=== PATIENT | female | born 1960 | race Caucasian/White ===

== ENCOUNTER 2017-04-27 13:14 | Inpatient (IN) | payer OTHER ==
[2017-04-27 14:15] LABS: ABS Basophils 0.1 10^3/ul (0-0.2); ABS Eosinophils 0 10^3/ul (0-0.6); ABS Lymphocytes 1.3 10^3/ul (1.0-4.8); ABS Monocytes 1.1 10^3/ul (0-0.8); ABS Neutrophils 14.2 10^3/ul (1.5-7.7); ABS Nucleated RBC 0 10^3/ul; Eosinophil % 0 % (0-6); Hematocrit 40 % (35-47); Hemoglobin 13.1 g/dl (12.0-16.0); Lymphocyte % 8.1 % (25-47); Mean Corpuscular HGB Conc 33 g/dl (31-36); Mean Corpuscular Hemoglobin 25 pg (27-31); Mean Corpuscular Volume 77 fL (80-97); Mean Platelet Volume 8 um3 (7.4-10.4); Nucleated Red Blood Cells % 0; Platelet Count 282 10^3/ul (150-450); Red Cell Distribution Width 16 % (10.5-15); White Blood Count 16.8 10^3/ul (3.5-10.8)
[2017-04-27 14:22] LABS: INR 1.04 (0.77-1.02)
[2017-04-27 14:30] LABS: EGFR Non-African American 79.9 (>60)
[2017-04-27] MEDS ORDERED: NS 0.9% 1000 ML* 2,000 ML IV ONE (14:30)
[2017-04-27] MEDS ORDERED: Cefepime(*) 1 GM in NS 0.9% 50 ML* 50 ML IVPB ONE (14:30)
--- NOTE | 2017-04-27 14:58 | RAD ---
Indication: Bilateral swollen forehead and eyes of uncertain etiology. Cardiac disease and chronic obstructive pulmonary disease. Comparison: June 04, 2015 Technique: Upright AP 1435 hours Report: Elevated lung volumes and mild prominence of the interstitial markings with superimposed soft tissues with obese body habitus limiting assessment. No compelling evidence for pulmonary alveolar infiltrate, focal pulmonary lesion, pleural effusion, or pneumothorax. Cardiomegaly. Unremarkable central pulmonary vasculature accounting for portable AP technique. IMPRESSION: Stigmata of obstructive lung disease. No acute pulmonary or cardiac process evident.
[2017-04-27] MEDS ORDERED: Acetaminophen TAB* 325 MG PO ONE (15:49)
[2017-04-27] MEDS ORDERED: Vancomycin(*) 1,000 MG in NS 0.9% 250 ML* 250 ML IVPB ONE (16:37)
[2017-04-27] MEDS ORDERED: Iodixanol* (CONTRAST) 320 MG/ML 100 ML SDV IV ONE (16:42)
[2017-04-27 16:46] LABS: Urine Appearance Cloudy; Urine Blood 2+ (Negative); Urine Color Yellow; Urine Ketones Trace (Negative); Urine Protein 1+(30 mg/dL) (Negative); Urine Specific Gravity 1.008 (1.010-1.030); Urine Urobilinogen Negative (Negative)
--- NOTE | 2017-04-27 17:19 | RAD ---
HISTORY: Facial cellulitis COMPARISONS: None TECHNIQUE: Multiple contiguous axial CT scans were obtained of the face with intravenous contrast, with coronal and sagittal multiplanar reformations. FINDINGS: BONES: There is no displaced fracture or dislocation. The orbital rim is intact. The zygomatic arch is intact. The pterygoid plates are intact. ORBITS: There is left preorbital soft tissue swelling without post septal or intraconal extension. The globes are round. The optic nerves are symmetric. The extraocular musculature is normal. There is no post septal or intraconal inflammatory change. There is no retrobulbar hematoma. PARANASAL SINUSES: The paranasal sinuses are clear. BRAIN AND SOFT TISSUE: As noted above, there is left preorbital soft tissue swelling without post septal or intraconal extension. The soft tissue swelling and into the infratemporal fossa along the platysma fascia without deep subcutaneous extension. There is no loculated fluid collection to suggest abscess. OTHER: None. IMPRESSION: LEFT PREORBITAL CELLULITIS WITHOUT LOCULATED FLUID COLLECTION TO SUGGEST ABSCESS.
[2017-04-27] MEDS ORDERED: Ondansetron INJ* 2 MG/ML VIAL IV PRN (17:41)
[2017-04-27] MEDS ORDERED: NS 0.9% 1000 ML* 1,000 ML IV ONE (17:41)
[2017-04-27] MEDS ORDERED: Albuterol HFA INHALER* 8 gm MDI INH PRN (17:43)
[2017-04-27] MEDS ORDERED: NS 0.9% 1000 ML* 1,000 ML IV SCH (17:45)
[2017-04-27] MEDS ORDERED: Vancomycin per Pharmacy* NOTE FOLLOW UP PRN (17:54)
[2017-04-27] MEDS ORDERED: Dextrose 50% Syringe 50 ML* 25 GM/50 ML SYRINGE IV PUSH PRN (17:58)
[2017-04-27] MEDS ORDERED: Vancomycin(*) 2,000 MG in NS 0.9% 500 ML* 500 ML IVPB ONE (18:30)
--- NOTE | 2017-04-27 18:37 | ED ---
Mayela Yung Julia, scribed for Harry Benoit MD on 04/27/17 at 1449 . Complex/Multi-Sys Presentation - HPI Summary HPI Summary: This patient is a 56 year old F BIBA to [facility] with a chief complaint of redness and swelling of her upper face beginning today. Patient rates the pain 6/10. Patients eyes have been bothering her for the past few day and states she has been rubbing them. Patient reports intermittent fever for the past few days that shes been treating with acetaminophen. - History Of Current Complaint Chief Complaint: EDAllergicReaction Time Seen by Provider: 04/27/17 13:49 Hx Obtained From: Patient Onset/Duration: Gradual Onset, Lasting Days Timing: Constant Location: Pain At: - eyes and upper face Associated Signs And Symptoms: Positive: Fever - Allergies/Home Medications Allergies/Adverse Reactions: Allergies Allergy/AdvReac Type Severity Reaction Status Date / Time No Known Allergies Allergy Verified 06/28/12 14:08 Home Medications: Home Medications Insulin Aspart Protamine & Asp [Novolog Mix 70/30 (70-30) 100 Unit/ml] 150 unit SUBCUT QPM 04/27/17 [History Confirmed 04/27/17] Varenicline (NF) [Chantix 1 MG TAB (NF)] 1 mg PO BID 04/27/17 [History Confirmed 04/27/17] PMH/Surg Hx/FS Hx/Imm Hx Endocrine/Hematology History: Reports: Hx Anticoagulant Therapy, Hx Diabetes - Type II, Hx Thyroid Disease - hypo Cardiovascular History: Reports: Hx Hypercholesterolemia, Hx Hypertension Respiratory History: Reports: Hx Chronic Obstructive Pulmonary Disease (COPD) Musculoskeletal History: Reports: Hx Arthritis - osteo, Other Musculoskeletal History - (right) knee replacement 02/2010 Sensory History: Reports: Hx Contacts or Glasses, Hx Vision Problem Denies: Hx Deafness Opthamlomology History: Reports: Hx Contacts or Glasses, Hx Vision Problem Neurological History: Reports: Hx Headaches Denies: Hx Dementia, Hx Developmental Delay, Hx Migraine Psychiatric History: Reports: Hx Anxiety, Hx Depression - Cancer History Cancer Type, Location and Year: 06/01-08/29 endometrial cancer [place] 1, stage 1, no myometrial or lymphpvascular invasion. No adjunctive required. - Surgical History Surgery Procedure, Year, and Place: 08/29 total hysterectomy bilateral salpingo oopherectomy, 02/27 [facility] (right) total knee replacement - Immunization History Date of Influenza Vaccine: 02/2017 Immunizations Up to Date: Yes Infectious Disease History: No Infectious Disease History: Denies: Traveled Outside the [place] in Last 30 Days - Family History Known Family History: Positive: Cardiac Disease - Social History Alcohol Use: None Substance Use Type: Reports: None Hx Tobacco Use: Yes Smoking Status (MU): Light Every Day Tobacco Smoker Type: Cigarettes Have You Smoked in the Last Year: Yes Review of Systems Positive: Fever Positive: Other - swelling and pain All Other Systems Reviewed And Are Negative: Yes Physical Exam - Summary Physical Exam Summary: Appearance: The patient is well-nourished in no acute distress and in no acute pain. Skin: The skin is warm and dry and skin color reflects adequate perfusion. HEENT: The head is normocephalic and atraumatic. The pupils are equal and reactive. The conjunctivae are clear and without drainage. Nares are patent and without drainage. Mouth reveals moist mucous membranes and the throat is without erythema and exudate. The external ears are intact. The ear canals are patent and without drainage. The tympanic membranes are intact. Swollen and erythemic face. Neck: the neck is supple with full range of motion and non-tender. There are no carotid bruits. There is no neck vein distension. Respiratory: Chest is non-tender. Lungs are clear to auscultation and breath sounds are symmetrical and equal. Cardiovascular: Heart is regular rate and rhythm. There is no murmur or rub auscultated. There is no peripheral edema and pulses are symmetrical and equal. Abdomen: The abdomen is soft and non-tender. There are normal bowel sounds heard in all four quadrants and there is no organomegaly palpated. Musculoskeletal: There is no back tenderness noted. Extremities are non-tender with full range of motion. There is good capillary refill. There is no peripheral edema or calf tenderness elicited. Neurological: Patient is alert and oriented to person, place and time. The patient has symmetrical motor strength in all four extremities. Cranial nerves are grossly intact. Deep tendon reflexes are symmetrical and equal in all four extremities. Psychiatric: The patient has an appropriate affect and does not exhibit any anxiety or depression Triage Information Reviewed: Yes Vital Signs On Initial Exam: Initial Vitals Temp Pulse Resp BP Pulse Ox 103.5 F 123 20 185/93 96 04/27/17 13:37 04/27/17 13:37 04/27/17 13:37 04/27/17 13:37 04/27/17 13:37 Vital Signs Reviewed: Yes - [place]sha Coma Scale Coma Scale Total: 15 Diagnostics - Vital Signs Vital Signs Temp Pulse Resp BP Pulse Ox 04/27/17 14:03 96 04/27/17 13:37 103.5 F 123 20 185/93 96 - Laboratory Lab Results: Lab Results 04/27/17 04/27/17 04/27/17 Range/Units 14:00 14:00 14:00 WBC 16.8 H (3.5-10.8) 10^3/ul RBC 5.20 (4.0-5.4) 10^6/ul Hgb 13.1 (12.0-16.0) g/dl Hct 40 (35-47) % MCV 77 L (80-97) fL MCH 25 L (27-31) pg MCHC 33 (31-36) g/dl RDW 16 H (10.5-15) % Plt Count 282 (150-450) 10^3/ul MPV 8 (7.4-10.4) um3 Neut % (Auto) 84.9 H (38-83) % Lymph % (Auto) 8.1 L (25-47) % Avery % (Auto) 6.6 (1-9) % Eos % (Auto) 0 (0-6) % Baso % (Auto) 0.4 (0-2) % Absolute Neuts (auto) 14.2 H (1.5-7.7) 10^3/ul Absolute Lymphs (auto) 1.3 (1.0-4.8) 10^3/ul Absolute Monos (auto) 1.1 H (0-0.8) 10^3/ul Absolute Eos (auto) 0 (0-0.6) 10^3/ul Absolute Basos (auto) 0.1 (0-0.2) 10^3/ul Absolute Nucleated RBC 0 10^3/ul Nucleated RBC % 0 INR (Anticoag Therapy) 1.04 H (0.77-1.02) Sodium 128 L (133-145) mmol/L Potassium Pending Chloride 91 L (101-111) mmol/L Carbon Dioxide 28 (22-32) mmol/L Anion Gap Pending BUN 9 (6-24) mg/dL Creatinine 0.75 (0.51-0.95) mg/dL Est GFR ( Amer) 102.8 (>60) Est GFR (Non-Af Amer) 79.9 (>60) BUN/Creatinine Ratio 12.0 (8-20) Glucose 353 H (70-100) mg/dL Lactic Acid (0.5-2.0) mmol/L Calcium 9.8 (8.6-10.3) mg/dL Total Bilirubin 0.70 (0.2-1.0) mg/dL AST Pending ALT 16 (7-52) U/L Alkaline Phosphatase 79 (34-104) U/L Troponin I 0.02 (<0.04) ng/mL Total Protein 8.1 (6.4-8.9) g/dL Albumin 3.9 (3.2-5.2) g/dL Globulin 4.2 H (2-4) g/dL Albumin/Globulin Ratio 0.9 L (1-3) 04/27/17 Range/Units 14:00 WBC (3.5-10.8) 10^3/ul RBC (4.0-5.4) 10^6/ul Hgb (12.0-16.0) g/dl Hct (35-47) % MCV (80-97) fL MCH (27-31) pg MCHC (31-36) g/dl RDW (10.5-15) % Plt Count (150-450) 10^3/ul MPV (7.4-10.4) um3 Neut % (Auto) (38-83) % Lymph % (Auto) (25-47) % Avery % (Auto) (1-9) % Eos % (Auto) (0-6) % Baso % (Auto) (0-2) % Absolute Neuts (auto) (1.5-7.7) 10^3/ul Absolute Lymphs (auto) (1.0-4.8) 10^3/ul Absolute Monos (auto) (0-0.8) 10^3/ul Absolute Eos (auto) (0-0.6) 10^3/ul Absolute Basos (auto) (0-0.2) 10^3/ul Absolute Nucleated RBC 10^3/ul Nucleated RBC % INR (Anticoag Therapy) (0.77-1.02) Sodium (133-145) mmol/L Potassium Chloride (101-111) mmol/L Carbon Dioxide (22-32) mmol/L Anion Gap BUN (6-24) mg/dL Creatinine (0.51-0.95) mg/dL Est GFR ( Amer) (>60) Est GFR (Non-Af Amer) (>60) BUN/Creatinine Ratio (8-20) Glucose (70-100) mg/dL Lactic Acid 1.8 (0.5-2.0) mmol/L Calcium (8.6-10.3) mg/dL Total Bilirubin (0.2-1.0) mg/dL AST ALT (7-52) U/L Alkaline Phosphatase (34-104) U/L Troponin I (<0.04) ng/mL Total Protein (6.4-8.9) g/dL Albumin (3.2-5.2) g/dL Globulin (2-4) g/dL Albumin/Globulin Ratio (1-3) Result Diagrams: 04/27/17 14:00 04/27/17 16:00 Lab Statement: Any lab studies that have been ordered have been reviewed, and results considered in the medical decision making process. - Radiology CXR Radiology Interpretation Completed By: Radiologist - Stigmata of obstructive lung disease. No acute pulmonary or cardiac process evident. ED Physician has reviewed this report. Complex Multi-Symp Course/Dx Course Of Treatment: Ms. Burciaga presented afteer having noticed her face was swollen today. She has been running fevers that she has treated with acetaminophen (not today). Her eyes have been hurting and she has been rubbing them. She had an obvious facial cellulitis on arrival and met sepsis criteria. Antibiotics and Fluids were immediately ordered and labs sent after establishing an IV. She is being admitted to the hospitalist service. - Diagnoses Provider Diagnoses: Facial cellulitis - Critical Care Time Critical Care Time: 30-74 min Discharge - Discharge Plan Condition: Stable Disposition: ADMITTED TO [facility] The documentation as recorded by the Mayela dunbar Julia accurately reflects the service I personally performed and the decisions made by me, Harry Benoit MD.
[2017-04-27] MEDS: Mometasone/Formoter 200/5 MDI INH SCH (20:49)
[2017-04-27] MEDS ORDERED: Insulin LISPRO* 1 UNITS UNIT SUBCUT ONE ×2 (21:25→21:33)
[2017-04-27] MEDS: Acetaminophen TAB* 325 MG PO PRN (22:09)
[2017-04-27] MEDS: Gabapentin CAP(*) 300 MG PO SCH (22:10)
[2017-04-27] MEDS: traZODone TAB* 50 MG TAB PO SCH (22:11)
[2017-04-27] MEDS: Amitriptyline TAB* 25 MG PO SCH (22:11)
[2017-04-27] MEDS: Insulin ISOPH/REG 70/30 (*) 1 UNITS UNIT SUBCUT SCH (22:12)
[2017-04-27] MEDS: Heparin VIAL(*) 5000 UNITS/ML VIAL (FIVE THOUSAND) SUBCUT SCH (22:13)
[2017-04-27] MEDS: Atorvastatin* 20 MG TAB PO SCH (22:38)
--- NOTE | 2017-04-27 22:53 | HP ---
CC: Dr. Carrasquillo * HISTORY AND PHYSICAL: DATE OF ADMISSION: 04/27/17 PRIMARY CARE PROVIDER: Dr. Carrasquillo. ATTENDING PHYSICIAN WHILE IN THE HOSPITAL: Dakota Rosa MD * (report dictated by Olayinka Johnson NP) CHIEF COMPLAINT: 1. Facial swelling. 2. Fever. HISTORY OF PRESENT ILLNESS: Mrs. Burciaga is a 56-year-old female patient. She has a history of diabetes, COPD, hypertension, hyperlipidemia, uterine cancer, and a history of JOSE. She comes into the ER today stating that for the last couple of days she has had a fever off and on. She had not been feeling well. She says that she woke up this morning and her face was swollen. She was concerned because of the way her face looked and came into the ER immediately. She says that she has had fevers. She denies having any pain when moving her eyes. She says she has not had any visual changes. She denies having any vomiting or diarrhea. No chest pain. She denied having any shortness of breath or any abdominal discomfort. She was concerned because of her face, came into the ED today. She appeared to be septic from possible facial cellulitis. We were asked to evaluate for admission. PAST MEDICAL HISTORY: Significant for: 1. Diabetes. 2. COPD. 3. Hypertension. 4. Hyperlipidemia. 5. Uterine cancer. 6. JOSE. PAST SURGICAL HISTORY: 1. The patient has had a hysterectomy. 2. Right total knee replacement. HOME MEDICATIONS: Include: 1. Insulin 70/30, 150 at bedtime and 100 units in the morning. 2. Lisinopril/hydrochlorothiazide 1 tablet p.o. b.i.d. 3. Chantix 1 mg p.o. b.i.d. 4. Advair 1 puff inhaled b.i.d. 5. Lexapro 20 mg p.o. daily. 6. Aspirin 81 mg daily. 7. Amitriptyline 75 mg p.o. at bedtime. 8. Ventolin 2 puffs inhaled every 4 hours as needed. 9. Neurontin 300 mg p.o. t.i.d. 10. Lasix 40 mg daily. 11. Metoprolol XL 200 mg daily. 12. Victoza 1.8 mg subcu daily. 13. Synthroid 100 mcg p.o. daily. 14. Trazodone 50 mg p.o. at bedtime. 15. Metformin 1000 mg p.o. b.i.d. 16. Mucinex 600 mg p.o. b.i.d. 17. Spiriva 1 capsule inhaled daily. 18. Zocor 40 mg at bedtime. ALLERGIES TO MEDICATIONS: Include no known drug allergies. FAMILY HISTORY: Her mother had a history of Parkinson's and COPD. Father had a history of rheumatoid fever. SOCIAL HISTORY: She is a pack a day smoker for about 40 years. Does not drink alcohol. Surrogate decision maker is her son, Clinton. REVIEW OF SYSTEMS: There was a documented fever. She denied any significant weight change. No double vision. No ear discharge. She denied having any rhinorrhea. No sore throat, no thyroid enlargement. She denies having any chest pain. There is no orthopnea, no nocturnal dyspnea. There was no abdominal pain. No nausea, no vomiting, no dysuria, and no frequency. There was no seizure, no loss of consciousness, and no pruritus. There are no skin ulcerations. Review of 14 systems completed, all others negative. PHYSICAL EXAMINATION GENERAL: At this time, Mrs. Burciaga is a 56-year-old female patient, she is chronically ill-appearing. She is sitting in the ED stretcher. She does not appear to be in any acute distress. VITAL SIGNS: Blood pressure 143/83 with a pulse of 124, respirations were 18, O2 sat was 96% on 3 L, and her temperature was 103. HEENT: Head: Atraumatic and normocephalic. Eyes: EOMs are intact. Sclerae anicteric and not pale. Throat: Oral mucosa appears to be dry. No oropharyngeal erythema. NECK: Supple. LUNGS: Clear to auscultation bilaterally. No wheezes, rales, or rhonchi. HEART: Sounds S1 and S2. Regular rate and rhythm. She is tachycardic. ABDOMEN: Soft, it was flat and nontender. Bowel sounds were present. EXTREMITIES: Pulses were 2+ throughout. She is moving all 4 extremities with 5 /5 strength. NEUROLOGIC: The patient is awake, alert, and oriented x3. Tongue midline. Film Printer were equal. No gross focal deficits. SKIN: Intact with the exception she has erythema across the forehead. It does extend down into the upper lid of both of her eyes. She can open the left eye just slightly. Again in that eye she has no pain with EOMs and she has visual acuity which is intact. The erythema does extend to the preauricular space. She is not having any tenderness in her ears. There is no adenopathy in the neck noted as well. DIAGNOSTIC STUDIES/LAB DATA: Her labs today revealed a WBC of 16.8, RBC of 5.20, hemoglobin of 13.1, hematocrit of 40, and platelet count of 282. INR 1. Her sodium was 138, potassium of 3.8, chloride of 91, bicarb 28, BUN 9, creatinine of 0.75, glucose 353, lactate 1.8, calcium 9.8. Total bili 0.7, AST 14, ALT 16, alk phos 79, troponin 0.02, albumin 3.9. Urine showed low specific gravity, 1+ protein, 2+ blood, and 3+ glucose. Serology was negative for flu. She did have a CT of the maxillofacial which showed, impression: Left periorbital cellulitis without loculated fluid collection to suggest abscess. Chest x-ray showed stigmata of COPD, no acute cardiopulmonary or cardiac process is evident. Old medical records were reviewed. ASSESSMENT AND PLAN: Mrs. Burciaga is a 56-year-old female patient coming into the ER today with complaints of facial swelling, on evaluation was found to have facial cellulitis. She will be admitted under inpatient status for: 1. Sepsis secondary to facial cellulitis. At this point, I will give her a liter of fluids for 3 L wide open. Her lactic was negative. Blood cultures have been sent. We will put her on vanco and cefepime for the time being and we will follow her aggressively and closely. She has no pain with range of motion of the eye or EOMs and she has no deficit in visual acuity. Pupils are equal and reactive to light bilaterally. There was no erythema in the sclerae. I did have my attending evaluate as well and he was in agreement that at this point there does appear to be periorbital and that hopefully with aggressive IV antibiotics we can prevent orbital cellulitis. We will monitor her closely for progression. 2. Diabetes. She will be on lispro sliding scale and I will continue her 70/ 30. 3. Chronic obstructive pulmonary disease. Continue p.r.n. nebs and her meds as prescribed. 4. Hypertension. Continue just her beta-fartun at this point. I have switched it over to the immediate release 100 b.i.d. In addition to this, we will go ahead and hold her lisinopril/hydrochlorothiazide and Lasix from the acute illness. 5. Hyperlipidemia. Continue her Zocor. 6. History of obstructive sleep apnea. I have ordered a CPAP. 7. Depression. Continue her Lexapro. 8. Code status. Full code. 9. Fluids, electrolytes, and nutrition. She can have a consistent carb diet. TIME SEEN: On admission 60 minutes, greater than half the time was spent face- to- face with the patient obtaining my history and physical, other half the time spent going over the plan of care with the patient and implementing the plan of care. I did discuss the plan of care with my attending, Dr. Rosa; he is in agreement. OLAYINKA JOHNSON, BRYAN [id number]/CPS #: [id number] [place]
[2017-04-27] MEDS ORDERED: hydrALAZINE IV* 20 MG/ML VIAL IV PRN (23:59)
[2017-04-28] MEDS: Vancomycin(*) 1,250 MG in NS 0.9% 250 ML* 250 ML IVPB SCH ×3 (03:15→17:22)
[2017-04-28] MEDS: Levothyroxine TAB* 100 MCG TAB PO SCH (05:56)
[2017-04-28] MEDS: Cefepime 2 GM in Dextrose(*) 2 GM/50 ML BAG IV SCH ×2 (05:56→16:23)
[2017-04-28] MEDS: Heparin VIAL(*) 5000 UNITS/ML VIAL (FIVE THOUSAND) SUBCUT SCH ×3 (05:56→21:25)
[2017-04-28 06:06] LABS: Hematocrit 35 % (35-47); Hemoglobin 11.2 g/dl (12.0-16.0); Mean Corpuscular HGB Conc 32 g/dl (31-36); Mean Corpuscular Hemoglobin 25 pg (27-31); Mean Corpuscular Volume 78 fL (80-97); Mean Platelet Volume 8 um3 (7.4-10.4); Platelet Count 249 10^3/ul (150-450); Red Blood Count 4.48 10^6/ul (4.0-5.4); Red Cell Distribution Width 16 % (10.5-15)
[2017-04-28 06:14] LABS: INR 1.06 (0.77-1.02)
[2017-04-28 06:16] LABS: EGFR Non-African American 109.7 (>60)
[2017-04-28 06:21] LABS: ABS Basophils 0 10^3/ul (0-0.2); ABS Eosinophils 0 10^3/ul (0-0.6); ABS Lymphocytes 1.2 10^3/ul (1.0-4.8); ABS Monocytes 1.1 10^3/ul (0-0.8); ABS Neutrophils 9.5 10^3/ul (1.5-7.7); ABS Nucleated RBC 0 10^3/ul; Eosinophil % 0.1 % (0-6); Lymphocyte % 10.4 % (25-47); Nucleated Red Blood Cells % 0
[2017-04-28] MEDS: Aspirin EC Low Dose* 81 MG TAB.EC PO SCH (07:39)
[2017-04-28] MEDS: Metoprolol Tartrate TAB* 100 MG TAB PO SCH ×2 (07:39→20:23)
[2017-04-28] MEDS: Citalopram TAB* 40 MG PO SCH (07:39)
[2017-04-28] MEDS: Gabapentin CAP(*) 300 MG PO SCH ×3 (07:39→20:22)
[2017-04-28] MEDS: Insulin LISPRO* 1 UNITS UNIT SUBCUT SCH ×3 (08:03→16:21)
[2017-04-28] MEDS: Insulin ISOPH/REG 70/30 (*) 1 UNITS UNIT SUBCUT SCH ×2 (08:04→17:22)
[2017-04-28] MEDS: Mometasone/Formoter 200/5 MDI INH SCH ×2 (08:14→19:18)
[2017-04-28] MEDS: Tiotropium CAP.INH* CAP.INH/18 MCG (USE ORDER SET !) INH SCH (08:15)
[2017-04-28] MEDS ORDERED: Spiriva Inhaler DEVICE* 1 EACH DEVICE INH ONE (09:00)
--- NOTE | 2017-04-28 13:12 | PN ---
Subjective Date of Service: 04/28/17 Interval History: Pt examined today at the bedside. She states that she feels better today but states that the swelling has gotten worse in her face. She denies trouble with vision she states she is able to text on her phone and see the letters. Denies pain eye movements. ROS-denies fever, denies chills, denies chest pain, denies sob, denies nausea, denies vomiting, denies lightheadedness, denies loc, denies abdominal pain, review of 11 systems completed all others negative, Objective Active Medications: Acetaminophen (Tylenol Tab*) 650 mg PO Q4H PRN PRN Reason: FEVER/PAIN Last Admin: 04/27/17 22:09 Dose: 650 mg Albuterol (Ventolin Hfa Inhaler*) 2 puff INH Q4H PRN PRN Reason: SHORTNESS OF BREATH Amitriptyline HCl (Elavil Tab*) 75 mg PO BEDTIME [facility] Last Admin: 04/27/17 22:11 Dose: 75 mg Aspirin (Aspirin Ec Low Dose*) 81 mg PO DAILY [facility] Last Admin: 04/28/17 07:39 Dose: 81 mg Atorvastatin Calcium (Lipitor*) 20 mg PO BEDTIME [facility] Last Admin: 04/27/17 22:38 Dose: 20 mg Citalopram Hydrobromide (Celexa Tab*) 40 mg PO DAILY [facility] Last Admin: 04/28/17 07:39 Dose: 40 mg Dextrose (D50w Syringe 50 Ml*) 12.5 gm IV PUSH .FOR FS < 60 - SS PRN PRN Reason: FS < 60 Gabapentin (Neurontin Cap(*)) 300 mg PO TID [facility] Last Admin: 04/28/17 07:39 Dose: 300 mg Heparin Sodium (Porcine) (Heparin Vial(*)) 5,000 units SUBCUT Q8HR [facility] Last Admin: 04/28/17 05:56 Dose: 5,000 units Hydralazine HCl (Apresoline Iv*) 10 mg IV Q4H PRN PRN Reason: Systolic >170 Cefepime HCl (Maxipime 2 Gm In Dextrose Duplex (*)) 2 gm in 50 mls @ 100 mls/ hr IV Q12H [facility] Last Admin: 04/28/17 05:56 Dose: 100 mls/hr Vancomycin HCl 1,250 mg/ (Sodium Chloride) 250 mls @ 166.667 mls/hr IVPB Q8H [facility] PRN Reason: Protocol Last Admin: 04/28/17 10:22 Dose: 166.667 mls/hr Insulin Human Isoph/Insulin Regular (Humulin 70/30 (*)) 100 units SUBCUT QAM [facility] Last Admin: 04/28/17 08:04 Dose: 100 units Insulin Human Isoph/Insulin Regular (Humulin 70/30 (*)) 150 units SUBCUT QPM [facility] Last Admin: 04/27/17 22:12 Dose: 150 units Insulin Human Lispro (Humalog*) 0 units SUBCUT AC [facility] PRN Reason: Protocol Last Admin: 04/28/17 11:38 Dose: Not Given Levothyroxine Sodium (Synthroid Tab*) 100 mcg PO DAILY@0600 [facility] Last Admin: 04/28/17 05:56 Dose: 100 mcg Metoprolol Tartrate (Lopressor Tab*) 100 mg PO BID [facility] Last Admin: 04/28/17 07:39 Dose: 100 mg Mometasone Furoate/Formoterol Fumar (Dulera 200/5 Mdi*) 1 puff INH BID [facility] Last Admin: 04/28/17 08:14 Dose: 1 puff Ondansetron HCl (Zofran Inj*) 4 mg IV Q6H PRN PRN Reason: NAUSEA Pharmacy Consult (Vancomycin Per Pharmacy*) 1 note FOLLOW UP . PRN PRN Reason: PER PROTOCOL Pharmacy Profile Note (Vancomycin Trough Check) 1 note FOLLOW UP 0930 ONE Stop: 04/29/17 09:31 Tiotropium [place] (Spiriva Cap.Inh*) 1 cap INH DAILY [facility] Last Admin: 04/28/17 08:15 Dose: 1 cap Trazodone HCl (Desyrel Tab*) 50 mg PO BEDTIME [facility] Last Admin: 04/27/17 22:11 Dose: 50 mg Vital Signs - 8 hr 04/28/17 04/28/17 04/28/17 07:13 07:39 07:41 Temperature 99.0 F Pulse Rate 102 Respiratory 20 18 18 Rate Blood Pressure 150/76 (mmHg) O2 Sat by Pulse 98 Oximetry 04/28/17 04/28/17 04/28/17 08:32 09:26 10:03 Temperature Pulse Rate Respiratory 18 18 Rate Blood Pressure (mmHg) O2 Sat by Pulse 97 96 Oximetry 04/28/17 11:28 Temperature 98.2 F Pulse Rate 87 Respiratory 14 Rate Blood Pressure 138/67 (mmHg) O2 Sat by Pulse 95 Oximetry Oxygen Devices in Use Now: None, Nasal Cannula Appearance: 56 y/o female patient sitting in bed on edge, NAD, eating lunch Eyes: No Scleral Icterus, PERRLA, - - EOMS intact, no errythme scelera white, errthyma noted to forhead and upper eye lids, bilateral, can open right eye, due to sweeling cant open left eye, Ears/Nose/Mouth/Throat: NL Teeth, Lips, Gums Neck: NL Appearance and Movements; NL JVP Respiratory: Symmetrical Chest Expansion and Respiratory Effort, Clear to Auscultation Cardiovascular: NL Sounds; No Murmurs; No JVD Abdominal: NL Sounds; No Tenderness; No Distention Lymphatic: No Cervical Adenopathy Extremities: No Edema Skin: - - errythema noted to forehead and eye lids bilaterally, Neurological: Alert and Oriented x 3 Lines/Tubes/Other Access: Clean, Dry and Intact Peripheral IV Result Diagrams: 04/28/17 05:54 04/28/17 05:54 Additional Lab and Data: Lab Results 04/27/17 04/27/17 04/27/17 Range/Units 14:00 14:00 14:00 WBC 16.8 H (3.5-10.8) 10^3/ul RBC 5.20 (4.0-5.4) 10^6/ul Hgb 13.1 (12.0-16.0) g/dl Hct 40 (35-47) % MCV 77 L (80-97) fL MCH 25 L (27-31) pg MCHC 33 (31-36) g/dl RDW 16 H (10.5-15) % Plt Count 282 (150-450) 10^3/ul MPV 8 (7.4-10.4) um3 Neut % (Auto) 84.9 H (38-83) % Lymph % (Auto) 8.1 L (25-47) % Slope % (Auto) 6.6 (1-9) % Eos % (Auto) 0 (0-6) % Baso % (Auto) 0.4 (0-2) % Absolute Neuts (auto) 14.2 H (1.5-7.7) 10^3/ul Absolute Lymphs (auto) 1.3 (1.0-4.8) 10^3/ul Absolute Monos (auto) 1.1 H (0-0.8) 10^3/ul Absolute Eos (auto) 0 (0-0.6) 10^3/ul Absolute Basos (auto) 0.1 (0-0.2) 10^3/ul Absolute Nucleated RBC 0 10^3/ul Nucleated RBC % 0 INR (Anticoag Therapy) 1.04 H (0.77-1.02) Sodium 128 L (133-145) mmol/L Potassium Pending Chloride 91 L (101-111) mmol/L Carbon Dioxide 28 (22-32) mmol/L Anion Gap Pending BUN 9 (6-24) mg/dL Creatinine 0.75 (0.51-0.95) mg/dL Est GFR ( Amer) 102.8 (>60) Est GFR (Non-Af Amer) 79.9 (>60) BUN/Creatinine Ratio 12.0 (8-20) Glucose 353 H (70-100) mg/dL Lactic Acid (0.5-2.0) mmol/L Calcium 9.8 (8.6-10.3) mg/dL Total Bilirubin 0.70 (0.2-1.0) mg/dL AST Pending ALT 16 (7-52) U/L Alkaline Phosphatase 79 (34-104) U/L Troponin I 0.02 (<0.04) ng/mL Total Protein 8.1 (6.4-8.9) g/dL Albumin 3.9 (3.2-5.2) g/dL Globulin 4.2 H (2-4) g/dL Albumin/Globulin Ratio 0.9 L (1-3) 04/27/17 Range/Units 14:00 WBC (3.5-10.8) 10^3/ul RBC (4.0-5.4) 10^6/ul Hgb (12.0-16.0) g/dl Hct (35-47) % MCV (80-97) fL MCH (27-31) pg MCHC (31-36) g/dl RDW (10.5-15) % Plt Count (150-450) 10^3/ul MPV (7.4-10.4) um3 Neut % (Auto) (38-83) % Lymph % (Auto) (25-47) % Slope % (Auto) (1-9) % Eos % (Auto) (0-6) % Baso % (Auto) (0-2) % Absolute Neuts (auto) (1.5-7.7) 10^3/ul Absolute Lymphs (auto) (1.0-4.8) 10^3/ul Absolute Monos (auto) (0-0.8) 10^3/ul Absolute Eos (auto) (0-0.6) 10^3/ul Absolute Basos (auto) (0-0.2) 10^3/ul Absolute Nucleated RBC 10^3/ul Nucleated RBC % INR (Anticoag Therapy) (0.77-1.02) Sodium (133-145) mmol/L Potassium Chloride (101-111) mmol/L Carbon Dioxide (22-32) mmol/L Anion Gap BUN (6-24) mg/dL Creatinine (0.51-0.95) mg/dL Est GFR ( Amer) (>60) Est GFR (Non-Af Amer) (>60) BUN/Creatinine Ratio (8-20) Glucose (70-100) mg/dL Lactic Acid 1.8 (0.5-2.0) mmol/L Calcium (8.6-10.3) mg/dL Total Bilirubin (0.2-1.0) mg/dL AST ALT (7-52) U/L Alkaline Phosphatase (34-104) U/L Troponin I (<0.04) ng/mL Total Protein (6.4-8.9) g/dL Albumin (3.2-5.2) g/dL Globulin (2-4) g/dL Albumin/Globulin Ratio (1-3) Assess/Plan/Problems-Billing Assessment: 56 y/o female patient presents to [facility] with complaints of fever chills and facial redness and swelling found to be septic from facial cellulitis, - Patient Problems (1) COPD (chronic obstructive pulmonary disease) Current Visit: Yes Status: Acute Priority: High Comment: lungs clear, continue home inhalers, (2) Sepsis Current Visit: Yes Status: Acute Priority: High Comment: resolving, wbc trending down no fever in last 24 hrs, not tachy, coninue with iv abx for now id consult placed, (3) Facial cellulitis Current Visit: Yes Status: Acute Priority: High Comment: Worsening swelling noted today, but eom intact, pupils PERRLA, visual acutity intact, ct shows pre-orbital cellulits, coninue iv abx, (4) HLD (hyperlipidemia) Current Visit: Yes Status: Acute Priority: High Comment: statin ordered, (5) FEN Current Visit: Yes Status: Acute Priority: High Comment: consistent carb diet (6) Full code status Current Visit: Yes Status: Acute Priority: High (7) DM2 (diabetes mellitus, type 2) Current Visit: Yes Status: Acute Priority: High Comment: 70/30 bid and sliding scale, (8) DVT prophylaxis Current Visit: No Status: Acute Priority: High Comment: hep SQ (9) HTN (hypertension) Current Visit: Yes Status: Acute Priority: High Comment: continue home meds, holding lasix in setting of acute illness, restart when able, Status and Disposition: iv abx id consult home when able,
[2017-04-28] MEDS: diPHENhydraMINE PO* 50 MG PO PRN ×2 (14:33→23:42)
[2017-04-28] MEDS: Artificial Tears* 15 ML BTL BOTH EYES PRN ×2 (14:33→16:23)
[2017-04-28] MEDS: Clindamycin 600 MG IVPREMIX(* 600 MG/50 ML SDV IV SCH (18:07)
[2017-04-28] MEDS: Atorvastatin* 20 MG TAB PO SCH (20:22)
[2017-04-28] MEDS: traZODone TAB* 50 MG TAB PO SCH (20:22)
[2017-04-28] MEDS: Amitriptyline TAB* 25 MG PO SCH (20:23)
--- NOTE | 2017-04-28 22:06 | CONS ---
CONSULTATION REPORT: DATE OF CONSULT: 04/28/17 REQUESTING PROVIDER: Olaynika Rosales NP CONSULTING SERVICE: Infectious Disease. REASON FOR CONSULTATION: Facial cellulitis. IMPRESSION: 1. Periorbital cellulitis left greater than right, usually due to streptococcal infection. She feels she is having some improvement even throughout the day today since starting antibiotics. CT showed no underlying abscess and she has no proptosis to suggest orbital cellulitis. 2. Diabetes. RECOMMENDATIONS: Clindamycin 600 mg IV every 8 hours. We will reassess her tomorrow. It is a little bit unusual to have this bilateral, but she is improving on antibiotics, so we will continue treating her for cellulitis. HISTORY OF PRESENT ILLNESS: This is a 56-year-old diabetic woman who recently had a scab on the left medial canthus which she removed a couple of weeks ago and then she had the onset of fever, chills, left eye swelling and redness over the weekend, spread to the right and she came to the ER today, had the CT findings as noted above. She was admitted, started on vancomycin and cefepime. Her white blood cell count yesterday was 17, today it is 12. Blood cultures are negative. She had a fever of 38.5 overnight. She has not had infection like this in the past. She has no pain with eye movement and does not have double vision. Today she can open her eyes a little bit more. Yesterday she could not open the left one at all. PAST MEDICAL HISTORY: 1. Insulin-dependant diabetes. 2. Morbid obesity. 3. COPD. 4. Hypertension. 5. Hyperlipidemia. 6. Obstructive sleep apnea. 7. Uterine cancer status post hysterectomy. 8. Osteoarthritis status post right total knee arthroplasty. MEDICATIONS: 1. Tylenol. 2. Albuterol. 3. Lipitor. 4. Cefepime 2 g IV every 12 hours. 5. Gabapentin. 6. Heparin subcutaneous injection. 7. Metoprolol. 8. Spiriva. 9. Vancomycin. ALLERGIES: No known drug allergies. FAMILY HISTORY: Mother had Parkinson's and COPD. Father had rheumatic fever. SOCIAL HISTORY: She lives off [facility]. No travel or sick contacts. REVIEW OF SYSTEMS: A 14-point review of systems was negative except as noted above. PHYSICAL EXAM: Vital Signs: Temperature is 37, heart rate 90, respiratory rate 20, blood pressure 160/75, and oxygen saturation 96% on 3 L. General: She is awake, not in distress. Neurologic: She is oriented x3, follows all commands. HEENT: There is no conjunctival hemorrhage. Oropharynx without lesions. Neck : Supple. Lymph nodes: There is no cervical, supraclavicular, inguinal, axillary, or epitrochlear lymphadenopathy. Heart: Regular rate and rhythm without murmurs, rubs, or gallops. Lungs: Clear to auscultation bilaterally. Abdomen: Soft, nontender, and nondistended. There is bowel sounds present. Skin: There is no rash or splinter hemorrhage. There is diffuse bilateral erythema over her eyebrows bilaterally. The left eye, there is more diffuse edema. She cannot open that eye as much. There is no crepitus or fluctuance. DIAGNOSTIC STUDIES/LAB DATA: White blood cell count 12, hemoglobin 11, platelets 249,000. Creatinine is 0.5. Influenza PCR is negative. Urinalysis; blood. Please see impressions and recommendations outlined above. Thanks for asking me to see Ms. Burciaga in consultation. [id number]/[facility] #: [id number] [facility]
[2017-04-28] MEDS: Acetaminophen TAB* 325 MG PO PRN (23:42)
[2017-04-29] MEDS: Clindamycin 600 MG IVPREMIX(* 600 MG/50 ML SDV IV SCH ×3 (01:32→19:16)
[2017-04-29] MEDS: Levothyroxine TAB* 100 MCG TAB PO SCH (05:31)
[2017-04-29] MEDS: Heparin VIAL(*) 5000 UNITS/ML VIAL (FIVE THOUSAND) SUBCUT SCH ×3 (05:32→22:09)
[2017-04-29] MEDS: diPHENhydraMINE PO* 50 MG PO PRN ×2 (05:39→19:52)
[2017-04-29] MEDS: Artificial Tears* 15 ML BTL BOTH EYES PRN ×3 (05:39→19:51)
[2017-04-29] MEDS: Mometasone/Formoter 200/5 MDI INH SCH ×2 (08:09→20:34)
[2017-04-29] MEDS: Tiotropium CAP.INH* CAP.INH/18 MCG (USE ORDER SET !) INH SCH (08:09)
[2017-04-29] MEDS: Citalopram TAB* 40 MG PO SCH (09:00)
[2017-04-29] MEDS: Aspirin EC Low Dose* 81 MG TAB.EC PO SCH (09:00)
[2017-04-29] MEDS: Metoprolol Tartrate TAB* 100 MG TAB PO SCH ×2 (09:00→20:16)
[2017-04-29] MEDS: Gabapentin CAP(*) 300 MG PO SCH ×3 (09:00→20:16)
[2017-04-29] MEDS: Insulin LISPRO* 1 UNITS UNIT SUBCUT SCH ×3 (09:02→18:30)
[2017-04-29] MEDS: Insulin ISOPH/REG 70/30 (*) 1 UNITS UNIT SUBCUT SCH ×2 (09:03→19:17)
[2017-04-29 09:05] LABS: ABS Basophils 0.1 10^3/ul (0-0.2); ABS Eosinophils 0.1 10^3/ul (0-0.6); ABS Lymphocytes 1.5 10^3/ul (1.0-4.8); ABS Monocytes 1.2 10^3/ul (0-0.8); ABS Nucleated RBC 0 10^3/ul; Eosinophil % 0.6 % (0-6); Hematocrit 36 % (35-47); Hemoglobin 11.6 g/dl (12.0-16.0); Lymphocyte % 12.9 % (25-47); Mean Corpuscular HGB Conc 32 g/dl (31-36); Mean Corpuscular Hemoglobin 25 pg (27-31); Mean Corpuscular Volume 78 fL (80-97); Mean Platelet Volume 8 um3 (7.4-10.4); Nucleated Red Blood Cells % 0; Platelet Count 272 10^3/ul (150-450); Red Cell Distribution Width 16 % (10.5-15); White Blood Count 11.9 10^3/ul (3.5-10.8)
[2017-04-29 09:24] LABS: EGFR Non-African American 105.4 (>60)
[2017-04-29] MEDS ORDERED: Potassium Chlor TAB* 20 MEQ TAB.ER PO ONE (09:28)
[2017-04-29] MEDS ORDERED: Vancomycin Trough Check NOTE FOLLOW UP ONE (09:30)
--- NOTE | 2017-04-29 12:08 | PN ---
Progress Note - Progress Note Date of Service: 04/29/17 SOAP: Subjective: CC: face cellulitis HPI: 56 year old woman with facial preorbital cellulitis, L>R, swelling worse after laying down all night, getting better again today. Low grade fever overnight. No blurred or double vision. Objective: Vital Signs Temp 36.9 C 04/29/17 07:28 Pulse 93 04/29/17 07:28 Resp 18 04/29/17 09:03 BP 150/75 04/29/17 10:08 Pulse Ox 97 04/29/17 08:12 Intake & Output 04/28/17 04/29/17 04/29/17 18:59 06:59 18:59 Intake Total 1545 400 240 Output Total 250 Balance 1545 400 -10 Intake: IV Fluids 380 Cefipime 50 Clindamycin 50 NS (0.9%) 30 Vanco 250 IVPB 50 NS (0.9%) 50 Oral 1115 400 240 Output: Urine 250 Other: Estimated Void Large Medium # Bowel Movements 0 # Voids 1 1 Gen:awake, no distres HEENT: diffuse erythema and edema bandlike distribution accross her face at level of eyes, no conj injection Heart:RRR Lungs:CTA BL Assessment: 1. facial cellulitis, improving 2. diabetes 3. morbid obesity Plan: 1.continue clindamycin 600 mg iv q8hrs, can change to 300 mg three times daily for 1 week if improved later today or tomorrow
--- NOTE | 2017-04-29 13:21 | PN ---
Subjective Date of Service: 04/29/17 Interval History: Patient seen and examined at bedside. Denies fever, chills, shortness of breath (above baseline), chest discomfort, N/V/D. Pt states that she feels that ice is helping with the swelling. Denies any difficulty with her vision. Family History: Unchanged from Admission Social History: Unchanged from Admission Past Medical History: Unchanged from Admission Objective Active Medications: Acetaminophen (Tylenol Tab*) 650 mg PO Q4H PRN Reason: FEVER/PAIN Albuterol (Ventolin Hfa Inhaler*) 2 puff INH Q4H PRN Reason: SHORTNESS OF BREATH Amitriptyline HCl (Elavil Tab*) 75 mg PO BEDTIME [facility] Aspirin (Aspirin Ec Low Dose*) 81 mg PO DAILY [facility] Atorvastatin Calcium (Lipitor*) 20 mg PO BEDTIME [facility] Citalopram Hydrobromide (Celexa Tab*) 40 mg PO DAILY [facility] Dextrose (D50w Syringe 50 Ml*) 12.5 gm IV PUSH .FOR FS < 60 - SS PRN Reason: FS < 60 Diphenhydramine HCl (Benadryl Po*) 50 mg PO Q6H PRN Reason: ITCHING Gabapentin (Neurontin Cap(*)) 300 mg PO TID [facility] Heparin Sodium (Porcine) (Heparin Vial(*)) 5,000 units SUBCUT Q8HR [facility] Hydralazine HCl (Apresoline Iv*) 10 mg IV Q4H PRN Reason: Systolic >170 Clindamycin HCl/Dextrose (Cleocin 600 Mg Ivpremix(*) Sdv) 600 mg in 50 mls @ 100 mls/hr IV Q8H [facility] Insulin Human Isoph/Insulin Regular (Humulin 70/30 (*)) 100 units SUBCUT QAM [facility] Insulin Human Isoph/Insulin Regular (Humulin 70/30 (*)) 150 units SUBCUT QPM [facility] Insulin Human Lispro (Humalog*) 0 units SUBCUT AC [facility] Levothyroxine Sodium (Synthroid Tab*) 100 mcg PO DAILY@0600 [facility] Metoprolol Tartrate (Lopressor Tab*) 100 mg PO BID [facility] Mometasone Furoate/Formoterol Fumar (Dulera 200/5 Mdi*) 1 puff INH BID [facility] Ondansetron HCl (Zofran Inj*) 4 mg IV Q6H PRN Reason: NAUSEA Polyvinyl Alcohol (Polyvinyl Alcohol 1.4% Opth*) 1 drop BOTH EYES Q2H PRN Reason: DRY EYE Tiotropium [place] (Spiriva Cap.Inh*) 1 cap INH DAILY [facility] Trazodone HCl (Desyrel Tab*) 50 mg PO BEDTIME [facility] Vital Signs - 8 hr 04/29/17 04/29/17 04/29/17 05:39 07:28 07:45 Temperature 98.5 F Pulse Rate 93 Respiratory 20 16 18 Rate Blood Pressure 192/87 (mmHg) O2 Sat by Pulse 97 97 Oximetry 04/29/17 04/29/17 04/29/17 08:12 09:00 09:03 Temperature Pulse Rate Respiratory 18 18 Rate Blood Pressure (mmHg) O2 Sat by Pulse 97 Oximetry 04/29/17 10:08 Temperature Pulse Rate Respiratory Rate Blood Pressure 150/75 (mmHg) O2 Sat by Pulse Oximetry Oxygen Devices in Use Now: Nasal Cannula - 3L Appearance: NAD, laying in bed Eyes: - - Left eye swollen shut due to edema, EOMs intact bilat, scelera white Respiratory: Symmetrical Chest Expansion and Respiratory Effort, Clear to Auscultation Cardiovascular: NL Sounds; No Murmurs; No JVD, RRR Abdominal: NL Sounds; No Tenderness; No Distention Skin: - - Redness and swelling to forehead and across both eyes Neurological: Alert and Oriented x 3, NL Muscle Strength and Tone Lines/Tubes/Other Access: Clean, Dry and Intact Peripheral IV - site benign Nutrition: Taking PO's Result Diagrams: 04/29/17 08:54 04/29/17 08:54 Additional Lab and Data: Assess/Plan/Problems-Billing Assessment: Ms. Burciaga is a 56 y/o female who presented to the emergency room with complaints of fever chills and facial redness and swelling found to be septic from facial cellulitis. - Patient Problems (1) Facial cellulitis Code(s): L03.211 - CELLULITIS OF FACE SNOMED Code(s): 274677147 Comment: - Worsening swelling noted today suspect due to laying down. - ct shows pre-orbital cellulits - ID consult, appreciate input - Continue clindamycin (2) Sepsis Comment: - Resolving, wbc trending down and afebrile - Continue IV abx for now (3) COPD (chronic obstructive pulmonary disease) Code(s): J44.9 - CHRONIC OBSTRUCTIVE PULMONARY DISEASE, UNSPECIFIED SNOMED Code(s): 94575612 Comment: - No signs of exacerbation at this time - Continue home inhalers (4) DM2 (diabetes mellitus, type 2) Comment: - Glucose mostly controlled, glucose 140-320's - Continue 70/30 bid and Lispro sliding scale (5) JOSE (obstructive sleep apnea) Code(s): G47.33 - OBSTRUCTIVE SLEEP APNEA (ADULT) (PEDIATRIC) SNOMED Code(s): 80958116 Comment: - Continue CPAP (6) DVT prophylaxis Code(s): NQB8738 - SNOMED Code(s): 861240984 Comment: - hep SQ (7) Full code status Code(s): Z78.9 - OTHER SPECIFIED HEALTH STATUS SNOMED Code(s): 540581105 Status and Disposition: Inpatient. Discharge to home when medically stable, possibly later today or in the Am.
[2017-04-29] MEDS ORDERED: Magnesium Sulfate 2 GM IV* 2 GM/50 ML BAG IVPB ONE (13:45)
[2017-04-29] MEDS ORDERED: NS 0.9% 1000 ML* 1,000 ML IV ONE (19:08)
[2017-04-29] MEDS: Acetaminophen TAB* 325 MG PO PRN (19:16)
[2017-04-29] MEDS: Amitriptyline TAB* 25 MG PO SCH (20:17)
[2017-04-29] MEDS: traZODone TAB* 50 MG TAB PO SCH (20:17)
[2017-04-29] MEDS: Atorvastatin* 20 MG TAB PO SCH (20:17)
[2017-04-30] MEDS: Acetaminophen TAB* 325 MG PO PRN ×2 (00:03→08:38)
[2017-04-30] MEDS: Clindamycin 600 MG IVPREMIX(* 600 MG/50 ML SDV IV SCH ×2 (02:07→09:20)
[2017-04-30] MEDS: Artificial Tears* 15 ML BTL BOTH EYES PRN (05:37)
[2017-04-30] MEDS: Levothyroxine TAB* 100 MCG TAB PO SCH (05:37)
[2017-04-30] MEDS: Heparin VIAL(*) 5000 UNITS/ML VIAL (FIVE THOUSAND) SUBCUT SCH (05:38)
[2017-04-30 07:41] VITALS: BP 169/81
[2017-04-30 08:05] LABS: ABS Basophils 0 10^3/ul (0-0.2); ABS Eosinophils 0 10^3/ul (0-0.6); ABS Lymphocytes 1.2 10^3/ul (1.0-4.8); ABS Monocytes 1.1 10^3/ul (0-0.8); ABS Neutrophils 9.9 10^3/ul (1.5-7.7); ABS Nucleated RBC 0 10^3/ul; Eosinophil % 0.1 % (0-6); Hematocrit 33 % (35-47); Hemoglobin 10.4 g/dl (12.0-16.0); Lymphocyte % 10.1 % (25-47); Mean Corpuscular HGB Conc 32 g/dl (31-36); Mean Corpuscular Hemoglobin 25 pg (27-31); Mean Corpuscular Volume 79 fL (80-97); Mean Platelet Volume 8 um3 (7.4-10.4); Nucleated Red Blood Cells % 0.1; Platelet Count 282 10^3/ul (150-450); Red Blood Count 4.15 10^6/ul (4.0-5.4); Red Cell Distribution Width 16 % (10.5-15); White Blood Count 12.2 10^3/ul (3.5-10.8)
[2017-04-30] MEDS: Citalopram TAB* 40 MG PO SCH (08:39)
[2017-04-30] MEDS: Aspirin EC Low Dose* 81 MG TAB.EC PO SCH (08:39)
[2017-04-30] MEDS: Gabapentin CAP(*) 300 MG PO SCH (08:39)
[2017-04-30] MEDS: Metoprolol Tartrate TAB* 100 MG TAB PO SCH (08:39)
[2017-04-30] MEDS: Insulin ISOPH/REG 70/30 (*) 1 UNITS UNIT SUBCUT SCH (08:40)
[2017-04-30] MEDS: Insulin LISPRO* 1 UNITS UNIT SUBCUT SCH (08:40)
--- NOTE | 2017-04-30 08:43 | PN ---
Progress Note - Progress Note Date of Service: 04/30/17 SOAP: Subjective: CC: face cellulitis HPI: 56 year old woman with facial preorbital cellulitis, L>R, swelling worse after laying down all night, getting better again today. Fever resolved, can see more easily now. Face less red and swollen. No fever, rash, or diarrhea. Objective: Vital Signs Temp 36.4 C 04/30/17 07:41 Pulse 87 04/30/17 07:41 Resp 16 04/30/17 08:39 BP 169/81 04/30/17 07:41 Pulse Ox 99 04/30/17 07:42 Intake & Output 04/29/17 04/30/17 04/30/17 18:59 06:59 18:59 Intake Total 1120 1450 Output Total 750 350 Balance 370 1100 Intake: IV Fluids 1000 NS (0.9%) 1000 Oral 1120 450 Output: Urine 750 350 Other: Estimated Void Medium # Bowel Movements 0 0 # Voids 2 Gen:awake, no distres HEENT: diffuse mild erythema and edema band-like distribution accross her face at level of eyes, no conj injection Heart:RRR Lungs:CTA BL Assessment: 1. facial cellulitis, improving 2. diabetes 3. morbid obesity Plan: 1. change to 300 mg three times daily for 7 days , offered here fu appt she prefers to fu with PCP and call if getting worse
[2017-04-30] MEDS ORDERED: Potassium Chlor TAB* 20 MEQ TAB.ER PO ONE (08:46)
[2017-04-30] MEDS ORDERED: amLODIPine TAB* 5 MG PO SCH (09:00)
[2017-04-30] MEDS: Tiotropium CAP.INH* CAP.INH/18 MCG (USE ORDER SET !) INH SCH (09:06)
[2017-04-30] MEDS: Mometasone/Formoter 200/5 MDI INH SCH (09:08)
--- NOTE | 2017-05-02 16:08 | DS ---
CC: Dr. Ton Carrasquillo * DISCHARGE SUMMARY: DATE OF ADMISSION: 04/27/17 DATE OF DISCHARGE: 04/30/17 PRIMARY CARE PROVIDER: Dr. Ton Carrasquillo. MY ATTENDING WHILE IN THE HOSPITAL: Dr. Laurel Saxena * (DICTATED BY MEMO PERLA) CONSULTING PROVIDER: Dr. Rogers Palma of Infectious Disease. PRIMARY DISCHARGE DIAGNOSIS: Bilateral facial cellulitis, preseptal. SECONDARY DISCHARGE DIAGNOSES: 1. COPD. 2. Diabetes. 3. Hypertension. 4. Hyperlipidemia. 5. Obstructive sleep apnea. 6. Uterine cancer, status post hysterectomy. STUDIES DONE WHILE IN THE HOSPITAL: Chest x-ray from 04/27/17 read as stigmata of COPD, no pulmonary or cardiac process evident. Maxillofacial CT from 04/27/17 read as left periorbital cellulitis without loculated fluid collection to suggest abscess. MEDICATIONS AT DISCHARGE: 1. Trazodone 50 mg p.o. at bedtime. 2. Tiotropium 18 mcg 1 cap inhalation daily. 3. Metformin 1000 mg p.o. b.i.d. 4. Levothyroxine 100 mcg daily. 5. Elavil 75 mg p.o. at bedtime. 6. Metoprolol succinate 200 mg p.o. daily. 7. Simvastatin 40 mg p.o. at bedtime. 8. NovoLog Mix 70/30, 100 units subcutaneous q.a.m. 9. Lisinopril/hydrochlorothiazide 1 tab p.o. b.i.d. 10. Victoza 1.8 mg subcutaneous daily. 11. Guaifenesin 600 mg p.o. b.i.d. 12. Gabapentin 300 mg p.o. t.i.d. 13. Lexapro 20 mg p.o. daily. 14. Aspirin 81 mg p.o. daily. 15. Ventolin 2 puffs inhalation q.4 hours as needed. 16. Advair 250/50 one puff inhalation b.i.d. 17. Furosemide 40 mg p.o. daily. 18. NovoLog Mix 70/30, 150 units subcutaneous q.p.m. 19. Chantix 1 mg p.o. b.i.d. 20. Tylenol 650 mg p.o. q.4 hours as needed. 21. Artificial tears 1 drops both eyes q.2 hours as needed for dryness. 22. Clindamycin 300 mg p.o. t.i.d. x21. 23. Benadryl 50 mg p.o. q.6 hours as needed for itching. New medications at discharge: 1. Tylenol. 2. Artificial Tears. 3. Clindamycin. 4. Benadryl. Medications discontinued at discharge, none. HOSPITAL COURSE: This is a brief summary of the patient's presentation. For more details, please see the history and physical from Olayinka Rosales NP, from 04/27/17. In brief, the patient is a 56-year-old female with past medical history significant for the above who presented to the emergency department on 04/27/17 for facial swelling and fever. The patient stated that her face was swollen that morning to the point where she could not open her eyes. She has also had fluctuating fevers over the past 2 days. The patient denied any visual changes or restrictions to her extraocular movements. The patient had no shortness of breath or abdominal discomfort. The patient had appeared to be septic due to the fever of 103.5, tachycardia 123, respiratory rate of 20. The patient was on chronic 3 L nasal cannula at home due to her COPD. The patient also had elevated blood pressure at 185/93. On presentation, the patient was admitted and started on vanco and cefepime. The patient's blood pressure medications were held. Infectious Disease was consulted and the patient was switched to IV clindamycin. The patient felt better on the second day of admission after fluids and antibiotics, but states that the swelling in her face had gotten worse. The patient still denied any changes in her vision or pain with extraocular movements. The swelling was most likely due to fluid administration and lack of Lasix. The patient improved again on 04/29/17 and had a fever and mild leukocytosis. Repeat lactic acid is normal and a fluid bolus of 1 L was given. The patient was hypertensive at this time. The patient 's clindamycin was continued. The patient's blood glucose is processed, was moderately well controlled. The patient improved, again on 04/30/17, the patient had no recurrent fever. The patient continued to be hypertensive and requested to go home. The patient was switched to p.o. clindamycin 300 mg 3 times daily for 7 additional days per ID recommendations and was discharged. PHYSICAL EXAMINATION ON THE DAY OF DISCHARGE: General: The patient is a 56- year- old female who appears older than stated age with significant swelling around her bilateral orbits, sitting on the bed, in no acute distress. Vital Signs: At the time of discharge, temperature 97.6, pulse rate 87, respiratory rate 16, oxygen saturation 99% on 3 L of oxygen, blood pressure 169/81. Neck: Supple, nontender. No lymphadenopathy. No carotid bruits auscultated. Cardiac : Regular rate and rhythm. No clicks, murmurs, gallops, or rubs. Pulses 2+ in the bilateral dorsalis pedis, posterior tibialis and radial areas. 2+ pitting edema which the patient states is baseline. Respiratory: Diminished throughout. No wheezing, no adventitious lung sounds. Good air exchange bilaterally. Abdomen: Soft, nontender, nondistended, obese. Bowel sounds present. Normoactive in all 4 quadrants. No hepatosplenomegaly palpated. Patient's exam limited due to patient's body habitus. Genitourinary: No suprapubic tenderness or CVA tenderness. Skin: Clean, dry, and intact. Rashes surrounding the bilateral orbits with slight discharge around the lid margin of the right eye. No other rashes. Neuro: Cranial nerves II through XII grossly intact. No focal deficits. Alert and oriented x3. Psychiatric: Pleasant and cooperative. LABORATORY DATA ON THE DAY OF DISCHARGE: White blood cell count 12.2, hemoglobin 10.4, platelet count 282. Sodium 138, potassium 3.3, chloride 100, carbon dioxide 31, anion gap 7, BUN 6, creatinine 0.56, glucose 83, calcium 9.4 , magnesium 2.1. Other laboratory data of note from admission magnesium, on 01/2018 was 1.7. Glucose at the time of admission 353. Unremarkable urinalysis. DISCHARGE PLAN: The patient will be discharged to home on 7 more days of p.o. clindamycin for her preseptal bilateral orbital cellulitis. The patient will follow up with her primary care provider to ensure resolution of symptoms. The patient will return to the hospital for increased shortness of breath, chest pain, or other alarming symptoms. The patient should engage in activities as tolerated and have a heart-healthy diet without caffeine. TIME SPENT: Approximately 60 minutes was spent on this discharge, 30 of which was spent [id number] with the patient obtaining history and physical and discussing treatment plan. MEMO LUTZ [id number]/[facility] #: [id number] [place]
== END 2017-04-30 11:25 | disposition home or self-care (01) | DRG 720 ==
LOC: ED 13:14 → MED 17:37
PROVIDERS: ADMIT Internal Medicine; ATTEND Internal Medicine
DX: A41.9 Sepsis, unspecified organism (principal); Z99.81 Dependence on supplemental oxygen; E66.01 Morbid (severe) obesity due to excess calories; L03.213 Periorbital cellulitis; E11.9 Type 2 diabetes mellitus without complications; E03.9 Hypothyroidism, unspecified; Z68.43 Body mass index [BMI] 50.0-59.9, adult; J44.9 Chronic obstructive pulmonary disease, unspecified; I10 Essential (primary) hypertension; E78.5 Hyperlipidemia, unspecified; G47.33 Obstructive sleep apnea (adult) (pediatric); Z96.651 Presence of right artificial knee joint; F17.210 Nicotine dependence, cigarettes, uncomplicated; F32.9 Major depressive disorder, single episode, unspecified; M19.90 Unspecified osteoarthritis, unspecified site; F41.9 Anxiety disorder, unspecified; R40.2412 Glasgow coma scale score 13-15, at arrival to emergency department; Z85.42 Personal history of malignant neoplasm of other parts of uterus; Z90.710 Acquired absence of both cervix and uterus; Z79.4 Long term (current) use of insulin; Z79.82 Long term (current) use of aspirin; Z82.0 Family history of epilepsy and other diseases of the nervous system; Z82.5 Family history of asthma and other chronic lower respiratory diseases; Z83.1 Family history of other infectious and parasitic diseases; Z82.49 Family history of ischemic heart disease and other diseases of the circulatory system; Z90.722 Acquired absence of ovaries, bilateral
CPT/HCPCS: 36415; 70487; 71045; 80048; 80053; 81003; 81015; 82947; 83605; 83735; 84484; 85025; 85610; 87040; 87502; 94640; 94660; 94760; 99283; 99406; A9270-GY; J0360; J0692; J1644; J3370; J3475; Q9967

== ENCOUNTER 2017-09-07 01:59 | Observation (INO) | payer OTHER ==
[2017-09-07] MEDS ORDERED: Morphine INJ* 10 MG/ML 1 ML CARPUJECT IV ONE (02:43)
[2017-09-07] MEDS ORDERED: Morphine VIAL* 4 MG/ML VIAL (1 ml vial) IV ONE (02:43)
[2017-09-07] MEDS ORDERED: Metoclopramide IV* 5 MG/ML 2 ML VIAL IV ONE (02:44)
[2017-09-07 03:15] LABS: ABS Basophils 0 10^3/ul (0-0.2); ABS Eosinophils 0.1 10^3/ul (0-0.6); ABS Lymphocytes 0.8 10^3/ul (1.0-4.8); ABS Monocytes 1.3 10^3/ul (0-0.8); ABS Nucleated RBC 0 10^3/ul; Eosinophil % 0.4 % (0-6); Hematocrit 39 % (35-47); Hemoglobin 12.7 g/dl (12.0-16.0); Lymphocyte % 4.4 % (25-47); Mean Corpuscular HGB Conc 32 g/dl (31-36); Mean Corpuscular Hemoglobin 26 pg (27-31); Mean Corpuscular Volume 79 fL (80-97); Mean Platelet Volume 8.1 um3 (7.4-10.4); Nucleated Red Blood Cells % 0.1; Platelet Count 321 10^3/ul (150-450); Red Blood Count 4.98 10^6/ul (4.0-5.4); Red Cell Distribution Width 15 % (10.5-15); White Blood Count 19.3 10^3/ul (3.5-10.8)
[2017-09-07 03:25] LABS: EGFR Non-African American 77.3 (>60)
[2017-09-07] MEDS ORDERED: Iodixanol* (CONTRAST) 320 MG/ML 100 ML SDV IV ONE (03:27)
[2017-09-07 03:36] LABS: Urine Appearance Cloudy; Urine Blood 1+ (Negative); Urine Color Yellow; Urine Ketones Negative (Negative); Urine Protein 3+(>=500 mg/dL) (Negative); Urine Specific Gravity 1.018 (1.010-1.030); Urine Urobilinogen Negative (Negative)
[2017-09-07] MEDS ORDERED: cefTRIAXone(*) 1 GM in NS 0.9% 50 ML* 50 ML IVPB ONE (05:47)
[2017-09-07] MEDS ORDERED: Al Hydrox/Mg Hydrox/Simet LIQ* 30 ML UDC PO PRN (06:05)
[2017-09-07] MEDS ORDERED: Senna TAB PO PRN (06:05)
[2017-09-07] MEDS ORDERED: Docusate CAP* 100 MG PO PRN (06:05)
[2017-09-07] MEDS ORDERED: Ondansetron INJ* 2 MG/ML VIAL IV PRN (06:05)
[2017-09-07] MEDS ORDERED: Dextrose 50% Syringe 50 ML* 25 GM/50 ML SYRINGE IV PUSH PRN ×2 (06:07→06:11)
[2017-09-07] MEDS ORDERED: diPHENhydraMINE PO* 50 MG PO PRN (06:08)
[2017-09-07] MEDS ORDERED: Artificial Tears* 15 ML BTL BOTH EYES PRN (06:08)
[2017-09-07] MEDS ORDERED: Meclizine TAB* 12.5 MG PO PRN (06:08)
[2017-09-07] MEDS ORDERED: Levalbuterol HFA INHALER* 1 PUFF MDI INH PRN (06:08)
[2017-09-07] MEDS ORDERED: Albuterol HFA INHALER* 8 gm MDI INH PRN (06:08)
[2017-09-07] MEDS ORDERED: guaiFENesin ER TAB 600 MG PO PRN (06:08)
[2017-09-07] MEDS ORDERED: Acetaminophen TAB* 325 MG ONE (07:15)
[2017-09-07] MEDS: Acetaminophen TAB* 325 MG PO PRN ×2 (07:16→19:47)
--- NOTE | 2017-09-07 08:08 | HP ---
CC: Ton Carrasquillo MD * HISTORY AND PHYSICAL: DATE OF ADMISSION: 09/07/17 TIME OF EVALUATION: 0600. PRIMARY CARE PHYSICIAN: Ton Carrasquillo MD CHIEF COMPLAINT: Abdominal pain and urinary frequency. HISTORY OF PRESENT ILLNESS: This is a 56-year-old female with a past medical history of morbid obesity, COPD on 3 L of oxygen who presents to the emergency room with 2 days of worsening left-sided abdominal pain with low-grade temp. She is also complaining of dysuria and urinary frequency. She states 2 days ago she did have nausea and vomiting that seemed to have gotten better. Her appetite improved and then last evening her pain returned, she could not sleep. She denies any changes in her weight. No change in her bowel movements. No swelling in her legs. No back pain and she states she is chronically short of breath. No chest pain. Otherwise, review of systems is negative. In the emergency room, the patient had labs and imaging. She was given ceftriaxone for concern for pyelonephritis, Reglan and was referred to the hospitalist service for further evaluation. PAST MEDICAL HISTORY: 1. History of COPD, on 3 L. 2. Obstructive sleep apnea on BiPAP at bedtime. 3. Diabetes, on insulin. 4. Hypertension. 5. Hyperlipidemia. 6. History of uterine cancer. 7. Tobacco use. 8. Chronic pain. 9. Hypothyroidism. 10. Insomnia. PAST SURGICAL HISTORY: History of hysterectomy and right total knee replacement. MEDICATIONS: 1. Trazodone 50 mg p.o. at bedtime. 2. Metformin 1000 mg p.o. b.i.d. 3. Guaifenesin 600 mg p.o. b.i.d. 4. Benadryl 50 mg q.6 hours as needed. 5. Chantix 1 mg p.o. b.i.d. 6. Spiriva 1 cap inhaled daily. 7. Zocor 40 mg at bedtime. 8. Metoprolol succinate 200 mg p.o. daily. 9. Meclizine 25 mg p.o. t.i.d. as needed. 10. Lisinopril/hydrochlorothiazide 1 tab b.i.d. 11. Victoza 1.8 mg subcu daily. 12. Levothyroxine 100 mcg daily. 13. Xopenex 2 puffs inhaled 4 times a day as needed. 14. NovoLog 70/30 150 units in the evening, 100 units in the morning. 15. Gabapentin 300 mg p.o. t.i.d. 16. Lasix 40 mg daily. 17. Advair 250/50 one puff inhaled b.i.d. 18. Flonase 2 sprays both nares daily. 19. Lexapro 20 mg daily. 20. Clobetasol applied topically daily. 21. Aspirin 81 mg daily. 22. Artificial tears 1 drop both eyes every 2 hours as needed. 23. Amitriptyline 75 mg at bedtime. 24. Albuterol inhaler 2 puffs q.4 hours as needed. 25. Tylenol 650 mg every 4 hours as needed. ALLERGIES: No known drug allergies. FAMILY HISTORY: Reviewed and noncontributory. SOCIAL HISTORY: The patient lives at home with her son and her granddaughter. Her healthcare proxy is her older son, Toni. She has a total of 4 children. She is continually trying to quit smoking. She is down to 5 cigarettes a day. She has a [id number] history. She ambulates independently. No alcohol or illicit drug use. She was a retired day-care instructor. CODE STATUS: Full code. REVIEW OF SYSTEMS: A 14-point review of systems as mentioned in the HPI, otherwise negative. PHYSICAL EXAMINATION GENERAL: No acute distress, resting comfortably. VITAL SIGNS: Temp 98.9, pulse rate is 100, respiratory rate 20, oxygen saturation 94% on 3 L, blood pressure 142/68. HEENT: Head: Normocephalic. Pupils are equal and reactive. Oropharynx: Mucous membranes are moist. NECK: Supple, no adenopathy. RESPIRATORY: Clear to auscultation. Diminished breath sounds. No wheezing, rhonchi, or rales. CARDIAC: Tachycardia. Soft systolic murmur heard throughout. ABDOMEN: Morbidly obese, soft, distended. Tenderness in the left side. No rebound, no guarding. EXTREMITIES: Pretibial edema bilaterally. NEUROLOGIC: She is alert and oriented x3. No gross focal neurologic deficits. LABORATORY DATA: White count 19.3, hemoglobin 12.7, hematocrit 39, platelets 321. Sodium 135, potassium 3.7, chloride 95, bicarb 30, BUN 10, creatinine 0.77 , glucose 207. Urine shows +3 protein, +1 blood, positive nitrites, +3 leuks, white cells, red cells, 1+ bacteria. RADIOGRAPHIC DATA: Mild left perirenal inflammation, possible minimal perinephric inflammation, it could not indicate an ascending UTI and possible pyelonephritis or recently passed stone. ASSESSMENT: This is a 57-year-old female with a past medical history of chronic obstructive pulmonary disease and morbid obesity, who presents to the emergency room with abdominal pain and urinary frequency and dysuria. Abdominal pain, urinary frequency, and dysuria. Assessment: The patient's history and physical is consistent with pyelonephritis, may be a recent stone that has passed. She does meet sepsis criteria. Plan: We will admit her for observation, gentle IV fluids. We will continue on ceftriaxone and follow up her urine culture. CHRONIC MEDICAL PROBLEMS: 1. Diabetes. We will hold her oral agents and her subcu injection and her insulin and place her on Lantus and lispro with close monitor of her glucose levels. Remaining home medications we will order as prescribed. 2. FEN. We will place her on a diabetic diet. 3. DVT prophylaxis. The patient scores high risk. We will place her on heparin subcu t.i.d. 4. Code status. Full code. PATIENT TIME: Greater than 40 minutes spent doing history and physical, more than half time spent in direct patient contact. [id number]/[facility] #: [id number] [place]
[2017-09-07] MEDS ORDERED: Metoprolol Succinate XL TAB* 200 MG TAB.XL PO SCH ×2 (09:00→21:00)
[2017-09-07] MEDS ORDERED: Lisinopril/HCTZ 20/12.5(NF) TAB PO SCH (09:00)
[2017-09-07] MEDS: Lisinopril TAB* 10 MG PO SCH ×2 (09:36→19:46)
[2017-09-07] MEDS: Gabapentin CAP(*) 300 MG PO SCH ×3 (09:36→20:48)
[2017-09-07] MEDS: Hydrochlorothiazide TAB* 25 MG PO SCH ×2 (09:36→19:48)
[2017-09-07] MEDS: Aspirin EC TAB* 81 MG TAB.EC PO SCH (09:36)
[2017-09-07] MEDS: Furosemide TAB* 40 MG PO SCH (09:37)
[2017-09-07] MEDS: Insulin LISPRO* 1 UNITS UNIT SUBCUT SCH ×6 (09:38→18:12)
[2017-09-07] MEDS: Citalopram TAB* 40 MG PO SCH (09:38)
[2017-09-07] MEDS: Insulin GLARGINE(*) 1 UNITS UNIT SUBCUT SCH (09:40)
[2017-09-07] MEDS: Clobetasol 0.05% OINT* 30 GM TUBE TOPICAL SCH (09:41)
[2017-09-07] MEDS: Fluticasone NASAL SPRAY 50MCG* 16 gm SPRAY BTL BOTH NARES SCH (09:41)
[2017-09-07] MEDS: Mometasone/Formoter 200/5 MDI INH SCH ×2 (09:50→21:31)
[2017-09-07] MEDS: Tiotropium CAP.INH* CAP.INH/18 MCG (USE ORDER SET !) INH SCH (09:50)
[2017-09-07] MEDS: NS 0.9% 1000 ML* 1,000 ML IV SCH ×2 (09:52→19:48)
[2017-09-07] MEDS: Levothyroxine TAB* 100 MCG TAB PO SCH (09:53)
--- NOTE | 2017-09-07 11:00 | RAD ---
Indication: Left lower quadrant pain. Contrast: Administered 141.1 ml of VISIPAQUE 320 mg/ml. CT of the abdomen and pelvis was performed without oral contrast. IV contrast was administered. Coronal and sagittal reconstructed images were obtained. The lung bases demonstrate no pleural fluid, nodules or masses. Heart is of normal size without evidence of pericardial effusion. The liver is normal in size. No focal lesions or intrahepatic duct dilatation is noted. Gallbladder demonstrates no calcified gallstones. No pericholecystic fluid or wall thickening is noted. The spleen is normal in size. The pancreas demonstrates no mass or pancreatic duct dilatation. No adrenal masses are noted. The kidneys demonstrate symmetric nephrograms. There is mild left hydronephrosis and periureteral inflammation. No evidence of calculi is noted. A recently passed stone should be considered. Underlying pyelonephritis is also not excluded. The right kidney is unremarkable. No retroperitoneal lymphadenopathy is noted. Aorta and inferior vena cava are unremarkable. No evidence of abdominal aortic aneurysm is noted. No significant pelvic or retroperitoneal adenopathy is identified. CT of the pelvis demonstrates no retroperitoneal or pelvic lymphadenopathy. There is stool throughout the colon. No dilated loops of bowel are noted. There is a periumbilical hernia containing omentum. IMPRESSION: 1. There is left periureteral inflammation. High density material in the dependent portion of the urinary bladder which may represent recently passed calculus. Periureteral inflammation and question perinephric infiltration may represent pyelonephritis versus recently passed stone. Follow-up exam is suggested. 2. Small periumbilical hernia is noted.
[2017-09-07] MEDS: Heparin VIAL(*) 5000 UNITS/ML VIAL (FIVE THOUSAND) SUBCUT SCH ×2 (13:17→23:17)
--- NOTE | 2017-09-07 18:37 | PN ---
Hospitalist Progress Note Date of Service: 09/07/17
--- NOTE | 2017-09-07 19:19 | PN ---
Hospitalist Progress Note Date of Service: 09/07/17 Patient seen at the bedside, c/o fever. reports that abd pain has subsided and that she is feeling better. Denies chest pain or shortness of breath. No changes other then what is mentioned from Dr. Bailey's H/P. please refer to H/P for further details.
[2017-09-07] MEDS ORDERED: Atorvastatin* 20 MG TAB PO SCH (21:00)
[2017-09-07] MEDS ORDERED: traZODone TAB* 50 MG TAB PO SCH (21:00)
[2017-09-07] MEDS ORDERED: Amitriptyline TAB* 25 MG PO SCH (21:00)
[2017-09-08] MEDS: NS 0.9% 1000 ML* 1,000 ML IV SCH (05:55)
[2017-09-08] MEDS ORDERED: cefTRIAXone(*) 1 GM in NS 0.9% 50 ML* 50 ML IVPB SCH (06:00)
[2017-09-08] MEDS: Levothyroxine TAB* 100 MCG TAB PO SCH (06:01)
[2017-09-08] MEDS: Heparin VIAL(*) 5000 UNITS/ML VIAL (FIVE THOUSAND) SUBCUT SCH ×2 (06:01→13:01)
[2017-09-08 06:06] LABS: Hematocrit 35 % (35-47); Hemoglobin 11.1 g/dl (12.0-16.0); Mean Corpuscular HGB Conc 32 g/dl (31-36); Mean Corpuscular Hemoglobin 26 pg (27-31); Mean Corpuscular Volume 80 fL (80-97); Mean Platelet Volume 7.6 um3 (7.4-10.4); Platelet Count 278 10^3/ul (150-450); Red Blood Count 4.33 10^6/ul (4.0-5.4); Red Cell Distribution Width 15 % (10.5-15); White Blood Count 9.7 10^3/ul (3.5-10.8)
[2017-09-08 06:22] LABS: EGFR Non-African American 84.8 (>60)
[2017-09-08 06:38] LABS: Monocytes % 11 % (0-7)
[2017-09-08] MEDS: Tiotropium CAP.INH* CAP.INH/18 MCG (USE ORDER SET !) INH SCH (08:20)
[2017-09-08] MEDS: Mometasone/Formoter 200/5 MDI INH SCH (08:20)
[2017-09-08] MEDS ORDERED: Spiriva Inhaler DEVICE* 1 EACH DEVICE INH ONE (09:00)
[2017-09-08] MEDS: Insulin GLARGINE(*) 1 UNITS UNIT SUBCUT SCH (09:01)
[2017-09-08] MEDS: Insulin LISPRO* 1 UNITS UNIT SUBCUT SCH ×6 (09:01→17:54)
[2017-09-08] MEDS: Fluticasone NASAL SPRAY 50MCG* 16 gm SPRAY BTL BOTH NARES SCH (09:02)
[2017-09-08] MEDS: Clobetasol 0.05% OINT* 30 GM TUBE TOPICAL SCH (09:02)
[2017-09-08] MEDS: Citalopram TAB* 40 MG PO SCH (09:03)
[2017-09-08] MEDS: Lisinopril TAB* 10 MG PO SCH (09:03)
[2017-09-08] MEDS: Furosemide TAB* 40 MG PO SCH (09:03)
[2017-09-08] MEDS: Aspirin EC TAB* 81 MG TAB.EC PO SCH (09:03)
[2017-09-08] MEDS: Hydrochlorothiazide TAB* 25 MG PO SCH (09:03)
[2017-09-08] MEDS: Gabapentin CAP(*) 300 MG PO SCH ×2 (09:03→13:00)
[2017-09-08] MEDS: Acetaminophen TAB* 325 MG PO PRN (09:04)
[2017-09-08] MEDS ORDERED: Insulin LISPRO* 1 UNITS UNIT SUBCUT ONE (12:40)
--- NOTE | 2017-09-08 12:56 | PN ---
Subjective Date of Service: 09/08/17 Interval History: Ms. Burciaga denies any complaint today and is eager for discharge to home. She denies chest pain, SOB, nausea, or abdominal pain. Objective Active Medications: Acetaminophen (Tylenol Tab*) 650 mg PO Q4H PRN Al Hydrox/Mg Hydrox/Simethicone (Maalox Plus*) 30 ml PO Q6H PRN Albuterol (Ventolin Hfa Inhaler*) 2 puff INH Q4H PRN Amitriptyline HCl (Elavil Tab*) 75 mg PO BEDTIME MIGUEL Aspirin (Aspirin Ec Tab*) 81 mg PO DAILY MIGUEL Atorvastatin Calcium (Lipitor*) 20 mg PO BEDTIME MIGUEL Citalopram Hydrobromide (Celexa Tab*) 40 mg PO DAILY MIGUEL Clobetasol Propionate (Clobetasol 0.05% Oint*) 1 applic TOPICAL DAILY MIGULE Dextrose (D50w Syringe 50 Ml*) 12.5 gm IV PUSH .FOR FS < 60 - SS PRN Diphenhydramine HCl (Benadryl Po*) 50 mg PO Q6H PRN Docusate Sodium (Colace Cap*) 100 mg PO BID PRN Fluticasone Propionate (Flonase Nasal [place] 50mcg*) 2 spray BOTH NARES DAILY MIGUEL Furosemide (Lasix Tab*) 40 mg PO DAILY MIGUEL Gabapentin (Neurontin Cap(*)) 300 mg PO TID MIGUEL Guaifenesin (Mucinex*) 600 mg PO BID PRN Heparin Sodium (Porcine) (Heparin Vial(*)) 5,000 units SUBCUT Q8HR MIGUEL Hydrochlorothiazide (Hydrodiuril Tab*) 12.5 mg PO BID MIGUEL Ceftriaxone Sodium 1 gm/ (Sodium Chloride) 50 mls @ 200 mls/hr IVPB Q24H MIGUEL Insulin Glargine (Lantus(*)) 20 units SUBCUT Q24H MIGUEL Insulin Human Lispro (Humalog*) 0 units SUBCUT AC MIGUEL Insulin Human Lispro (Humalog*) 0 units SUBCUT AC MIGUEL Levalbuterol HCl (Xopenex Hfa Inhaler*) 2 puff INH QID PRN Levothyroxine Sodium (Synthroid Tab*) 100 mcg PO 0600 MIGUEL Lisinopril (Prinivil Tab*) 20 mg PO BID MIGUEL Meclizine HCl (Antivert Tab*) 25 mg PO TID PRN Metoprolol Succinate (Toprol Xl Tab*) 200 mg PO BEDTIME MIGUEL Mometasone Furoate/Formoterol Fumar (Dulera 200/5 Mdi*) 2 puff INH BID MIGUEL Ondansetron HCl (Zofran Inj*) 4 mg IV Q4H PRN Polyvinyl Alcohol (Polyvinyl Alcohol 1.4% Opth*) 1 drop BOTH EYES Q2H PRN Senna (Senokot Tab*) 1 tab PO BID PRN Tiotropium [place] (Spiriva Cap.Inh*) 1 cap INH DAILY MIGUEL Trazodone HCl (Desyrel Tab*) 50 mg PO BEDTIME MIGUEL Vital Signs: Temp Pulse Resp BP Pulse Ox 98.7 F 75 16 176/77 98 09/08/17 07:45 09/08/17 08:22 09/08/17 13:00 09/08/17 07:45 09/08/17 08:22 Oxygen Devices in Use Now: None Appearance: Female sitting up in bed in NAD Eyes: No Scleral Icterus Ears/Nose/Mouth/Throat: Mucous Membranes Moist Neck: Trachea Midline Respiratory: Symmetrical Chest Expansion and Respiratory Effort, Clear to Auscultation Cardiovascular: NL Sounds; No Murmurs; No JVD, No Edema Abdominal: NL Sounds; No Tenderness; No Distention Lymphatic: No Cervical Adenopathy Extremities: No Edema Skin: No Rash or Ulcers Neurological: Alert and Oriented x 3, NL Muscle Strength and Tone Nutrition: Taking PO's Result Diagrams: 09/08/17 05:54 09/08/17 05:54 Assess/Plan/Problems-Billing Assessment: Ms. Burciaga is a 57 yo female with a PMH of DM who was admitted on 09/07/17 with pyelonephritis. - Patient Problems (1) Pyelonephritis Comment: - Pain resolved, tolerating oral intake. - Leukocytosis resolved. Tmax 101 last evening. - CT abd with periuretal inflamation consistent with recently passed stone. Ecoli in urine culture with sensititivies pending. No history of positive cultures at [facility]. Switch to bactrim. (2) DM2 (diabetes mellitus, type 2) Comment: - BG 400 this afternoon, due to holding medications. - Resume insulin, metformin and victoza. (3) HTN (hypertension) Comment: - SBP 140-170s with IV fluids. - D/C IVF and continue lasix, metoprolol, lisinopril, and hctz. (4) HLD (hyperlipidemia) Comment: - Continue atorvastatin. (5) COPD (chronic obstructive pulmonary disease) Comment: - No signs of exacerbation at this time - Continue home inhalers (6) JOSE (obstructive sleep apnea) Comment: - Continue CPAP (7) Hypothyroidism Comment: - Continue levothyroxine. (8) DVT prophylaxis Comment: - hep SQ (9) Full code status Comment: Status and Disposition: OBV. Discharge to home.
[2017-09-08 16:20] VITALS: BP 166/77
--- NOTE | 2017-09-09 04:08 | DS ---
CC: Dr. Carrasquillo * DISCHARGE SUMMARY: DATE OF ADMISSION: 09/07/17 DATE OF DISCHARGE: 09/08/17 ATTENDING PHYSICIAN: Denisse Diop DO *(dictation provided by Tessie Abdullahi NP) PRIMARY DIAGNOSIS: Pyelonephritis with suspected passed kidney stone. SECONDARY DIAGNOSES: 1. History of chronic obstructive pulmonary disease, on 3 L nasal cannula at night. 2. Obstructive sleep apnea, on BiPAP. 3. History of insulin-dependent diabetes. 4. Hypertension. 5. History of insulin dependent diabetes. 6. Hyperlipidemia. 7. History of uterine cancer. 8. History of tobacco abuse. 9. Chronic pain. 10. Hypothyroidism. 11. Insomnia. PAST SURGICAL HISTORY: 1. Hysterectomy. 2. Right total knee replacement. MEDICATIONS AT THE TIME OF DISCHARGE: 1. Bactrim DS 1 tab p.o. b.i.d. x5 days. 2. Trazodone 50 mg p.o. at bedtime. 3. Metformin 1000 mg p.o. b.i.d. 4. Guaifenesin ER 600 mg p.o. b.i.d. 5. Diphenhydramine 50 mg p.o. q.6 hours p.r.n. 6. Chantix 1 mg p.o. b.i.d. 7. Spiriva 1 cap inhaled daily. 8. Simvastatin 40 mg p.o. at bedtime. 9. Metoprolol succinate 200 mg p.o. daily. 10. Meclizine 25 mg p.o. t.i.d. p.r.n. 11. Lisinopril with hydrochlorothiazide 20/12.5 one tab p.o. b.i.d. 12. Victoza 1.8 mg subcutaneously daily. 13. Levothyroxine 100 mcg p.o. daily. 14. Levalbuterol inhaler 2 puffs inhaled 4 times a day p.r.n. 15. NovoLog insulin 70/30; 100 units in the a.m. and 150 units in the p.m. 16. Neurontin 300 mg p.o. t.i.d. 17. Furosemide 40 mg p.o. daily. 18. Fluticasone with salmeterol 250/50 one puff inhaled b.i.d. 19. Fluticasone nasal spray 2 sprays both nares daily. 20. Lexapro 20 mg p.o. daily. 21. Clobetasol 0.05% ointment 1 application topically daily. 22. Aspirin 81 mg p.o. daily. 23. Artificial Tears q.2 hours p.r.n. 24. Amitriptyline 75 mg p.o. at bedtime. 25. Albuterol inhaler 2 puffs inhaled q.4 hours p.r.n. 26. Tylenol 650 mg p.o. q.4 hours p.r.n. HOSPITAL COURSE: Ms. Burciaga is a 57-year-old female with a past medical history of insulin-dependent diabetes who presents to the hospital on 09/07/17 with complaint of abdominal pain on the left side radiating to the flank as well as urinary frequency. Please see the dictated H and P from Анна Bailey MD for complete details. In brief, the patient reports that she had 2 days of worsening left-sided abdominal pain with a low-grade fever associated with dysuria and urinary frequency. In the emergency room, she had a CT of the abdomen and pelvis, which was read as follows: "There is left periureteral inflammation, high density material on the distended portion of the urinary bladder which may represent recently passed calculus. Periureteral inflammation and question of perinephric infiltration may represent pyelonephritis versus recently passed stone. Followup exam is suggested. Small periumbilical hernia is noted." She had labs that showed leukocytosis at 19.3 with 3+ leuk esterase and positive nitrite in the urine. Ms. Burciaga was admitted to the hospital, treated with IV fluids and ceftriaxone. She had urine culture, which now shows E. coli with sensitivities pending. With treatment, her leukocytosis has completely resolved. She has been afebrile since last night at 9 p.m. when her temperature was maximum of 101. Ms. Burciaga is doing quite well today. She is tolerating oral intake well. She denies any pain. She has had no fever throughout the day thus far. Ms. Burciaga is medically stable for discharge to home. The urine sensitivities are pending, but based on the fact that she does not have a history of frequent urinary tract infections and no positive cultures here at our hospital, I think it will be appropriate to treat with Bactrim and to monitor urine cultures closely. I have instructed the patient that she should immediately return to the emergency room should she have new pain, nausea, vomiting. I have instructed that she may have some intermittent low grade fever, but any fever higher than 102 especially associated with pain, nausea, vomiting, dysuria or inability to urinate should prompt immediate return to the ED. Ms. Burciaga is medically stable for discharge to home to follow up with Dr. Carrasquillo regarding this observation stay in the hospital for pyelonephritis and follow up with urine cultures as needed. DISPOSITION: Home. DIET: Consistent carbohydrate, low fat, low salt. ACTIVITY: As tolerated. FOLLOWUP: Please follow up with Dr. Carrasquillo. Our office will call the patient with an appointment. TIME SPENT: Approximately 60 minutes were spent on the discharge of this patient, more than half that time spent with the patient at bedside reviewing the events leading up to this hospitalization, performing the physical examination and reviewing my plan of care. TESSIE ABDULLAHI NP [id number]/[facility] #: [id number] [place]
--- NOTE | 2017-09-10 00:43 | ED ---
Mayela Yung Julia, scribed for Harry Noble MD on 09/07/17 at 0247 . Abdominal Pain/Female - HPI Summary HPI Summary: This patient is a 57 year old F BIBA to [facility] with a chief complaint of intermittent LLQ abdominal cramping for the past two nights that has become constant today. She states that two nights ago she developed nausea after dinner with intermittent LLQ. Last night she vomited and felt better. However symptoms have persisted and she reports a low grade fever. Pain is 8/10 in severity. She denies headache and cough. PMHx includes COPD. Patient is on 3L of nasal cannula O2 at home. - History of Current Complaint Chief Complaint: EDAbdPain Stated Complaint: GENERAL ILLNESS Time Seen by Provider: 09/07/17 02:05 Hx Obtained From: Patient Onset/Duration: Lasting Days Timing: Constant Pain Intensity: 8 Pain Scale Used: 0-10 Numeric Location: Discrete At: LLQ Character: Cramping Associated Signs and Symptoms: Positive: Fever, Nausea, Vomiting Allergies/Adverse Reactions: Allergies Allergy/AdvReac Type Severity Reaction Status Date / Time No Known Allergies Allergy Verified 09/07/17 02:13 Home Medications: Home Medications Clobetasol 0.05% OINT* 1 applic TOPICAL DAILY 09/07/17 [History Confirmed ] Fluticasone NASAL SPRAY 50MCG* [Flonase NASAL SPRAY 50MCG*] 2 spray BOTH NARES DAILY 09/07/17 [History Confirmed 09/07/17] Levalbuterol HFA INHALER* [Xopenex Hfa Inhaler*] 2 puff INH QID PRN 09/07/17 [ History Confirmed 09/07/17] Meclizine TAB* [Antivert 12.5 TAB*] 25 mg PO TID PRN 09/07/17 [History Confirmed 09/07/17] PMH/Surg Hx/FS Hx/Imm Hx Endocrine/Hematology History: Reports: Hx Anticoagulant Therapy, Hx Diabetes - Type II, Hx Thyroid Disease - hypo Cardiovascular History: Reports: Hx Hypercholesterolemia, Hx Hypertension Respiratory History: Reports: Hx Chronic Obstructive Pulmonary Disease (COPD) Musculoskeletal History: Reports: Hx Arthritis - osteo, Other Musculoskeletal History - (right) knee replacement 02/2010 Sensory History: Reports: Hx Contacts or Glasses, Hx Vision Problem Denies: Hx Deafness, Hx Hearing Aid Opthamlomology History: Reports: Hx Contacts or Glasses, Hx Vision Problem Neurological History: Reports: Hx Headaches Denies: Hx Dementia, Hx Developmental Delay, Hx Migraine Psychiatric History: Reports: Hx Anxiety, Hx Depression - Cancer History Cancer Type, Location and Year: 06/01-08/29 endometrial cancer grade 1, stage 1 , no myometrial or lymphpvascular invasion. No adjunctive required. - Surgical History Surgery Procedure, Year, and Place: 08/29 total hysterectomy bilateral salpingo oopherectomy, 02/27 [facility] [employer] (right) total knee replacement - Immunization History Date of Influenza Vaccine: 02/2017 Infectious Disease History: No Infectious Disease History: Denies: Traveled Outside the [place] in Last 30 Days - Family History Known Family History: Positive: Cardiac Disease - Social History Alcohol Use: None Substance Use Type: Reports: None Hx Tobacco Use: Yes Smoking Status (MU): Light Every Day Tobacco Smoker Type: Cigarettes Have You Smoked in the Last Year: Yes Review of Systems Positive: Fever Negative: Cough Positive: Abdominal Pain, Vomiting, Nausea Negative: Headache All Other Systems Reviewed And Are Negative: Yes Physical Exam - Summary Physical Exam Summary: Appearance: Well-appearing, obese, lying in bed comfortably Skin: Warm, dry, no obvious rash Eyes: sclera anicteric, no conjunctiva pallor ENT: mucous membranes moist, pharynx appears normal Neck: Supple, nontender Respiratory: Clear to auscultation, no signs of respiratory distress Cardiovascular: Normal S1, S2. No murmurs. Normal distal pulses in tibial and radial bilaterally. Tachycardic Abdomen: Soft, normal active bowel sounds present, LLQ tenderness is present without peritoneal signs Musculoskeletal: Normal, Strength/ROM Intact Neurological: A&Ox3, awake and alert, mentation is normal, speech is fluent and appropriate Psychiatric: affect is normal, does not appear anxious or depressed Triage Information Reviewed: Yes Vital Signs On Initial Exam: Initial Vitals Pulse Pulse Ox 109 95 09/07/17 02:06 09/07/17 02:06 Vital Signs Reviewed: Yes Diagnostics - Vital Signs Vital Signs Temp Pulse Resp BP Pulse Ox 09/07/17 02:08 98.9 F 104 20 199/106 94 09/07/17 02:07 105 199/106 94 09/07/17 02:06 109 95 - Laboratory Lab Results: Lab Results 09/07/17 09/07/17 09/07/17 Range/Units 02:53 02:53 03:03 WBC 19.3 H (3.5-10.8) 10^3/ul RBC 4.98 (4.0-5.4) 10^6/ul Hgb 12.7 (12.0-16.0) g/dl Hct 39 (35-47) % MCV 79 L (80-97) fL MCH 26 L (27-31) pg MCHC 32 (31-36) g/dl RDW 15 (10.5-15) % Plt Count 321 (150-450) 10^3/ul MPV 8.1 (7.4-10.4) um3 Neut % (Auto) 88.3 H (38-83) % Lymph % (Auto) 4.4 L (25-47) % [place] % (Auto) 6.7 (0-7) % Eos % (Auto) 0.4 (0-6) % Baso % (Auto) 0.2 (0-2) % Absolute Neuts (auto) 17.0 H (1.5-7.7) 10^3/ul Absolute Lymphs (auto) 0.8 L (1.0-4.8) 10^3/ul Absolute Monos (auto) 1.3 H (0-0.8) 10^3/ul Absolute Eos (auto) 0.1 (0-0.6) 10^3/ul Absolute Basos (auto) 0 (0-0.2) 10^3/ul Absolute Nucleated RBC 0 10^3/ul Nucleated RBC % 0.1 Sodium 135 L (139-145) mmol/L Potassium 3.7 (3.5-5.0) mmol/L Chloride 95 L (101-111) mmol/L Carbon Dioxide 30 (22-32) mmol/L Anion Gap 10 (2-11) mmol/L BUN 10 (6-24) mg/dL Creatinine 0.77 (0.51-0.95) mg/dL Est GFR ( Amer) 99.4 (>60) Est GFR (Non-Af Amer) 77.3 (>60) BUN/Creatinine Ratio 13.0 (8-20) Glucose 207 H (70-100) mg/dL Calcium 9.6 (8.6-10.3) mg/dL Total Bilirubin 0.60 (0.2-1.0) mg/dL AST 12 L (13-39) U/L ALT 12 (7-52) U/L Alkaline Phosphatase 66 (34-104) U/L Total Protein 7.4 (6.4-8.9) g/dL Albumin 3.8 (3.2-5.2) g/dL Globulin 3.6 (2-4) g/dL Albumin/Globulin Ratio 1.1 (1-3) Lipase 14 (11.0-82.0) U/L Urine Color Yellow Urine Appearance Cloudy Urine pH 6.0 (5-9) Ur Specific [place] 1.018 (1.010-1.030) Urine Protein 3+(>=500 mg/dl) A (Negative) Urine Ketones Negative (Negative) Urine Blood 1+ A (Negative) Urine Nitrate Positive A (Negative) Urine Bilirubin Negative (Negative) Urine Urobilinogen Negative (Negative) Ur Leukocyte Esterase 3+ A (Negative) Urine WBC (Auto) 3+(>20/hpf) A (Absent) Urine RBC (Auto) 3+(>10/hpf) A (Absent) Ur Squamous Epith Cells Present A (Absent) Urine Bacteria 1+ A (Absent) Urine Glucose Negative (Negative) Result Diagrams: 09/08/17 05:54 09/08/17 05:54 Lab Statement: Any lab studies that have been ordered have been reviewed, and results considered in the medical decision making process. - CT A/P CT Interpretation Completed By: Radiologist - Mild left periureteral inflammation and possible minimal perinephric inflammation could indicate ascending UTI adn possible pyelonephritis or recently passed stone. Dr. Noble has reviewed this report. Abdominal Pain Fem Course/Dx - Diagnoses Differential Diagnosis: Positive: Diverticulitis, Irritable Bowel Syndrome, Pancreatitis, Peptic Ulcer Disease, Urinary Tract Infection Provider Diagnoses: Diverticulitis of colon with perforation - Provider Notifications Discussed Care Of Patient With: Анна Bailey - hospitalist Time Discussed With Above Provider: 05:48 Instructed by Provider To: Admit As Inpatient Discharge - Sign-Out/Discharge Documenting (check all that apply): Discharge/Admit/Transfer - Discharge Plan Condition: Good Disposition: ADMITTED TO [facility] - Billing Disposition and Condition Condition: GOOD [place] [place] [facility] [place] The documentation as recorded by the Mayela dunbar Julia accurately reflects the service I personally performed and the decisions made by me, Harry Noble MD.
== END 2017-09-08 18:00 | disposition home or self-care (01) ==
LOC: ED 01:59 → MED 06:05
PROVIDERS: ADMIT Pediatrics; ATTEND Hospitalist
DX: N12 Tubulo-interstitial nephritis, not specified as acute or chronic (principal); Z87.09 Personal history of other diseases of the respiratory system; G47.30 Sleep apnea, unspecified; E11.9 Type 2 diabetes mellitus without complications; Z79.4 Long term (current) use of insulin; E78.5 Hyperlipidemia, unspecified; I10 Essential (primary) hypertension; Z87.891 Personal history of nicotine dependence; G47.00 Insomnia, unspecified; E03.9 Hypothyroidism, unspecified
CPT/HCPCS: 36415; 74177; 80048; 80053; 81003; 81015; 82947; 83605; 83690; 85025; 87077; 87086; 87186; 94640; 94660; 96374; 96375; 99284; A9270-GY; G0378; J0696; J1644; J2270; J2765; Q9967

== ENCOUNTER 2021-05-19 18:33 | Inpatient (IN) ==
[2021-05-19 19:43] LABS: Venous Bicarbonate HCO3 31.9 mmol/L (24-28)
[2021-05-19 19:59] LABS: ALT 89 U/L (7-52); AST 113 U/L (13-39); Albumin 3.1 g/dL (3.2-5.2); Albumin/Globulin Ratio 0.9 (1-3); Alkaline Phosphatase 85 U/L (35-149); Blood Urea Nitrogen 35 mg/dL (6-24); Calcium 9.1 mg/dL (8.6-10.3); Chloride 86 mmol/L (101-111); Globulin 3.3 g/dL (2-4); Magnesium 2.1 mg/dL (1.9-2.7); Potassium 4.4 mmol/L (3.5-5.0); Sodium 132 mmol/L (135-145); Total Protein 6.4 g/dL (6.4-8.9); eGFR CKD-EPI 55.7 (>60)
[2021-05-19 20:02] LABS: Anion Gap 5 mmol/L (2-11); CO2 Carbon Dioxide 41 mmol/L (22-32); Glucose 574 mg/dL (70-100)
[2021-05-19 20:04] LABS: ABS Basophils 0.1 10^3/ul (0-0.2); ABS Lymphocytes 0.5 10^3/ul (1.0-4.8); ABS Monocytes 0.4 10^3/ul (0-0.8); ABS Neutrophils 7.7 10^3/ul (1.5-7.7); Hematocrit 39 % (35-47); Hemoglobin 11.2 g/dL (12.0-16.0); Lymphocyte % 5.6 %; Mean Corpuscular HGB Conc 29 g/dL (31-36); Mean Corpuscular Hemoglobin 22 pg (27-31); Mean Corpuscular Volume 74 fL (80-97); Mean Platelet Volume 8.3 fL (7.4-10.4); Nucleated Red Blood Cells % 0.3; Platelet Count 237 10^3/uL (150-450); Red Blood Count 5.21 10^6 /uL (3.70-4.87); Red Cell Distribution Width 19 % (10-15); White Blood Count 8.6 10^3/uL (3.5-10.8)
[2021-05-19 20:53] LABS: Rapid COVID-19 Molecular Detected (Undetected)
[2021-05-19] MEDS ORDERED: Dextrose 50% Syringe 50 ml 25 GM/50 ML SYRINGE IV PUSH PRN ×2 (21:44)
[2021-05-19] MEDS ORDERED: Furosemide 40 mg/4 ml IV VIAL IV SLOW PU ONE (21:45)
[2021-05-19] MEDS ORDERED: Albuterol HFA INHALER 8 gm MDI INH PRN (21:45)
[2021-05-19 22:01] LABS: PO2 Arterial 87 mmHg (80-100)
[2021-05-19 22:02] LABS: LDH 370 U/L (140-271)
[2021-05-19 22:14] LABS: PCO2 Arterial 78 mmHg (35-45)
[2021-05-19 22:22] LABS: Ferritin 54.2 ng/mL (11-307)
[2021-05-19] MEDS ORDERED: Remdesivir 100 mg Vial 200 MG in NS 0.9% 250 ml 210 ML IV ONE (22:29)
[2021-05-19] MEDS: Heparin 5000 UNITS/ML 1 mL VIAL SUBCUT SCH (23:05)
[2021-05-19 23:24] LABS: INR 1.19 (0.86-1.15)
[2021-05-19 23:30] LABS: C Reactive Protein 99.32 mg/L (<8.01)
[2021-05-19 23:32] LABS: Albumin 3.1 g/dL (3.2-5.2); Calcium 9.1 mg/dL (8.6-10.3); Globulin 3.2 g/dL (2-4); Potassium 4.6 mmol/L (3.5-5.0); Total Bilirubin 0.6 mg/dL (0.2-1.0); Total Protein 6.3 g/dL (6.4-8.9); eGFR CKD-EPI 58.2 (>60)
[2021-05-20] MEDS ORDERED: Haloperidol 5 mg/ml SDV IV/IM 5 MG/ML AMP IV SLOW PU ONE (03:11)
[2021-05-20] MEDS: Nystatin TOP POWDER 15 GM BTL TOPICAL SCH ×3 (03:12→22:34)
[2021-05-20] MEDS: Heparin 5000 UNITS/ML 1 mL VIAL SUBCUT SCH ×3 (05:59→22:34)
[2021-05-20 06:25] LABS: Hematocrit 39 % (35-47); Hemoglobin 11.4 g/dL (12.0-16.0); Mean Corpuscular HGB Conc 29 g/dL (31-36); Mean Corpuscular Hemoglobin 22 pg (27-31); Mean Corpuscular Volume 75 fL (80-97); Mean Platelet Volume 8.1 fL (7.4-10.4); Platelet Count 249 10^3/uL (150-450); Red Blood Count 5.18 10^6 /uL (3.70-4.87); Red Cell Distribution Width 19 % (10-15); White Blood Count 9.3 10^3/uL (3.5-10.8)
[2021-05-20] MEDS ORDERED: Furosemide 40 mg/4 ml IV VIAL IV SLOW PU ONE (06:35)
[2021-05-20 06:36] LABS: INR 1.2 (0.86-1.15)
[2021-05-20 06:39] LABS: Albumin 3.2 g/dL (3.2-5.2); Albumin/Globulin Ratio 0.9 (1-3); Calcium 9.4 mg/dL (8.6-10.3); Globulin 3.5 g/dL (2-4); Potassium 4.2 mmol/L (3.5-5.0); Total Bilirubin 0.6 mg/dL (0.2-1.0); Total Protein 6.7 g/dL (6.4-8.9); eGFR CKD-EPI 59.5 (>60)
[2021-05-20] MEDS ORDERED: Mometasone/Formoter 200/5 MDI INH SCH (07:00)
[2021-05-20 07:22] LABS: TSH Ultra Thyroid Stim Horm 2.07 mcIU/mL (0.34-5.60)
[2021-05-20 07:24] LABS: Free T4 0.93 ng/dL (0.61-1.12)
[2021-05-20 07:27] LABS: ABS Lymphocytes 0.5 10^3/ul (1.0-4.8); ABS Monocytes 0.6 10^3/ul (0-0.8); ABS Neutrophils 8.1 10^3/ul (1.5-7.7); Lymphocyte % 5.2 %; Nucleated Red Blood Cells % 0.2
[2021-05-20 07:28] LABS: Anisocytosis 1+
[2021-05-20 07:31] LABS: Hypochromasia 1+; Microcytosis 2+; Polychromasia 1+
[2021-05-20] MEDS: Aspirin EC 81 mg TAB.EC (enteric coated) PO SCH (08:03)
[2021-05-20] MEDS ORDERED: Perflutren Lipid Microsphere 3 ML VIAL ONE (08:08)
[2021-05-20] MEDS ORDERED: Buffered Lidocaine 1% SYRIN 1 ml INTRADERM ONE (08:37)
[2021-05-20 08:59] LABS: PO2 Arterial 80 mmHg (80-100)
[2021-05-20] MEDS ORDERED: Insulin GLARGINE 100 un/ml 10 ml VIAL SUBCUT SCH ×3 (09:00→21:00)
[2021-05-20] MEDS ORDERED: Metoprolol Succinate XL 200 mg TAB PO SCH (09:00)
[2021-05-20 09:03] LABS: PCO2 Arterial 77 mmHg (35-45)
[2021-05-20] MEDS ORDERED: Labetalol IV 5 MG/ML 20 ml VIAL IV PUSH PRN (10:19)
[2021-05-20 10:47] LABS: Magnesium 1.9 mg/dL (1.9-2.7); Phosphorus 2.9 mg/dL (2.5-5.0)
[2021-05-20] MEDS: cefTRIAXone 1 gm/50 mL NS BAG 1 GM/50 ML BAG IVPB SCH (11:00)
[2021-05-20 11:50] LABS: Glucose Confirmatory 442 mg/dL (70-100)
[2021-05-20] MEDS: Azithromycin 500 mg/250 ml NS 500 MG/250 ML BAG IVPB SCH (12:42)
[2021-05-20] MEDS ORDERED: Insulin GLARGINE 100 un/ml 10 ml VIAL SUBCUT ONE (16:44)
[2021-05-20] MEDS ORDERED: Metoprolol Tartrate 5 mg VIAL 5 ml VIAL (1 mg/ml) IV ONE (17:08)
[2021-05-20] MEDS ORDERED: Metoprolol Tartrate 5 mg VIAL 5 ml VIAL (1 mg/ml) ONE (17:14)
[2021-05-20] MEDS ORDERED: Diltiazem IV push/loading dose 5 MG/ML 5 ML vial (25 mg) IV SLOW PU ONE (17:46)
[2021-05-20] MEDS ORDERED: Diltiazem IV push/loading dose 5 MG/ML 5 ML vial (25 mg) ONE (17:47)
[2021-05-20 18:00] LABS: PCO2 Arterial 71 mmHg (35-45); PO2 Arterial 70 mmHg (80-100)
[2021-05-20] MEDS: Diltiazem IV BAG D5W Premix 125 MG/125 ML BAG IV SCH (18:21)
[2021-05-20] MEDS ORDERED: Remdesivir 100 mg Vial 100 MG in NS 0.9% 250 ml 230 ML IV SCH (21:00)
[2021-05-20] MEDS ORDERED: CMCS: Simvastatin 20 mg TAB (NF) PO SCH (21:00)
[2021-05-20] MEDS: Dexamethasone IV 4 MG/ML VIAL 1 ml VIAL IV SLOW PU SCH (22:33)
[2021-05-20] MEDS: Famotidine IV 10 MG/ML 2 ml VIAL (20 mg) IV SLOW PU SCH (22:33)
[2021-05-20] MEDS ORDERED: Insulin Infusion 100unit/100mL 100 UNIT/100 ML BAG IV SCH (23:45)
[2021-05-21] MEDS: Diltiazem IV BAG D5W Premix 125 MG/125 ML BAG IV SCH (02:47)
[2021-05-21 04:02] LABS: Glucose 546 mg/dL (70-100)
[2021-05-21] MEDS: Heparin 5000 UNITS/ML 1 mL VIAL SUBCUT SCH ×2 (05:16→12:05)
[2021-05-21] MEDS: Levothyroxine 100 MCG/5 ML VIAL IV SCH (05:16)
[2021-05-21 06:09] LABS: Hematocrit 38 % (35-47); Mean Corpuscular HGB Conc 29 g/dL (31-36); Mean Corpuscular Hemoglobin 22 pg (27-31); Mean Corpuscular Volume 75 fL (80-97); Mean Platelet Volume 8.2 fL (7.4-10.4); Platelet Count 237 10^3/uL (150-450); Red Cell Distribution Width 19 % (10-15); White Blood Count 8.3 10^3/uL (3.5-10.8)
[2021-05-21 06:53] LABS: INR 1.12 (0.86-1.15)
[2021-05-21 07:08] LABS: ABS Lymphocytes 0.5 10^3/ul (1.0-4.8); ABS Monocytes 0.3 10^3/ul (0-0.8); ABS Neutrophils 7.5 10^3/ul (1.5-7.7); Nucleated Red Blood Cells % 0.2
[2021-05-21 07:36] LABS: Albumin 2.8 g/dL (3.2-5.2); CO2 Carbon Dioxide 39 mmol/L (22-32); Calcium 8.7 mg/dL (8.6-10.3); Chloride 88 mmol/L (101-111); Magnesium 1.8 mg/dL (1.9-2.7); Sodium 133 mmol/L (135-145)
[2021-05-21 07:39] LABS: Anion Gap 6 mmol/L (2-11)
[2021-05-21 07:43] LABS: ALT 289 U/L (7-52); Albumin/Globulin Ratio 0.9 (1-3); Alkaline Phosphatase 72 U/L (35-149); Blood Urea Nitrogen 36 mg/dL (6-24); Globulin 3.2 g/dL (2-4)
[2021-05-21] MEDS: Nystatin TOP POWDER 15 GM BTL TOPICAL SCH ×2 (08:20→21:31)
[2021-05-21] MEDS: Famotidine IV 10 MG/ML 2 ml VIAL (20 mg) IV SLOW PU SCH ×2 (08:20→21:30)
[2021-05-21] MEDS: Aspirin EC 81 mg TAB.EC (enteric coated) PO SCH (08:20)
[2021-05-21 08:59] LABS: Phosphorus 1.7 mg/dL (2.5-5.0); Potassium Redraw 4.1 mmol/L (3.5-5.0)
[2021-05-21] MEDS ORDERED: Insulin GLARGINE 100 un/ml 10 ml VIAL SUBCUT SCH (09:00)
[2021-05-21] MEDS: Azithromycin 500 mg/250 ml NS 500 MG/250 ML BAG IVPB SCH (09:42)
[2021-05-21] MEDS: cefTRIAXone 1 gm/50 mL NS BAG 1 GM/50 ML BAG IVPB SCH (09:42)
[2021-05-21] MEDS ORDERED: Magnesium Sulfate IV 3 GM in NS 0.9% 100 ml BAG 100 ML IVPB ONE (10:33)
[2021-05-21] MEDS: Bumetanide IV 0.25 MG/ML 4 ml VIAL (1 mg) SLOW PUSH SCH ×2 (10:45→21:30)
[2021-05-21] MEDS ORDERED: Potassium Phosphate IV 15 MMOLE in NS 0.9% 250 ml 250 ML IVPB ONE (11:14)
[2021-05-21] MEDS: Dexamethasone IV 4 MG/ML VIAL 1 ml VIAL IV SLOW PU SCH (21:30)
[2021-05-21 22:01] LABS: Glucose Confirmatory 478 mg/dL (70-100)
[2021-05-21] MEDS ORDERED: Insulin GLARGINE 100 un/ml 10 ml VIAL SUBCUT ONE (22:22)
[2021-05-21] MEDS ORDERED: Insulin GLARGINE 100 un/ml 10 ml VIAL ONE (22:25)
[2021-05-22 01:06] LABS: Glucose Confirmatory 410 mg/dL (70-100)
[2021-05-22] MEDS: Levothyroxine 100 MCG/5 ML VIAL IV SCH (05:17)
[2021-05-22 05:56] LABS: Calcium 8.6 mg/dL (8.6-10.3); Magnesium 1.9 mg/dL (1.9-2.7); Potassium 4.1 mmol/L (3.5-5.0); Total Bilirubin 0.5 mg/dL (0.2-1.0)
[2021-05-22 06:02] LABS: Albumin/Globulin Ratio 0.9 (1-3); Globulin 3.2 g/dL (2-4); Phosphorus 2.8 mg/dL (2.5-5.0); Total Protein 6.2 g/dL (6.4-8.9); eGFR CKD-EPI 75.2 (>60)
[2021-05-22] MEDS ORDERED: Magnesium Sulfate IV 1GM/100ML 1 GM/100 ML BAG IV ONE (06:42)
[2021-05-22 06:46] LABS: ABS Lymphocytes 0.4 10^3/ul (1.0-4.8); ABS Monocytes 0.3 10^3/ul (0-0.8); ABS Neutrophils 5.1 10^3/ul (1.5-7.7); Hematocrit 39 % (35-47); Hemoglobin 11.3 g/dL (12.0-16.0); Lymphocyte % 7.2 %; Mean Corpuscular HGB Conc 29 g/dL (31-36); Mean Corpuscular Hemoglobin 22 pg (27-31); Mean Corpuscular Volume 74 fL (80-97); Mean Platelet Volume 7.9 fL (7.4-10.4); Nucleated Red Blood Cells % 0.6; Platelet Count 237 10^3/uL (150-450); Red Blood Count 5.22 10^6 /uL (3.70-4.87); Red Cell Distribution Width 19 % (10-15); White Blood Count 5.9 10^3/uL (3.5-10.8)
[2021-05-22 06:50] LABS: INR 1.43 (0.86-1.15)
[2021-05-22] MEDS ORDERED: Insulin GLARGINE 100 un/ml 10 ml VIAL SUBCUT SCH ×2 (09:00→21:00)
[2021-05-22] MEDS: Famotidine IV 10 MG/ML 2 ml VIAL (20 mg) IV SLOW PU SCH ×2 (09:08→21:26)
[2021-05-22] MEDS: Bumetanide IV 0.25 MG/ML 4 ml VIAL (1 mg) SLOW PUSH SCH (09:08)
[2021-05-22] MEDS: Nystatin TOP POWDER 15 GM BTL TOPICAL SCH ×2 (09:17→22:03)
[2021-05-22] MEDS: FLUTICAS/UMECLI/VILANT 200-62.5-25 MDI (NF) INH SCH (10:11)
[2021-05-22] MEDS ORDERED: Dextrose 50% Syringe 50 ml 25 GM/50 ML SYRINGE IV PUSH PRN (18:05)
[2021-05-23] MEDS ORDERED: Dextrose 50% Syringe 50 ml 25 GM/50 ML SYRINGE IV PUSH PRN (00:05)
[2021-05-23] MEDS: Insulin GLARGINE 100 un/ml 10 ml VIAL SUBCUT SCH ×3 (00:19→20:31)
[2021-05-23 06:51] LABS: ALT 165 U/L (7-52); AST 41 U/L (13-39); Albumin 2.9 g/dL (3.2-5.2); Albumin/Globulin Ratio 0.9 (1-3); Alkaline Phosphatase 78 U/L (35-149); Blood Urea Nitrogen 23 mg/dL (6-24); Chloride 92 mmol/L (101-111); Globulin 3.3 g/dL (2-4); Glucose 187 mg/dL (70-100); Potassium 3.5 mmol/L (3.5-5.0); Sodium 139 mmol/L (135-145); Total Protein 6.2 g/dL (6.4-8.9); eGFR CKD-EPI 79.5 (>60)
[2021-05-23 07:02] LABS: Anion Gap 4 mmol/L (2-11); CO2 Carbon Dioxide 43 mmol/L (22-32)
[2021-05-23] MEDS: FLUTICAS/UMECLI/VILANT 200-62.5-25 MDI (NF) INH SCH (07:47)
[2021-05-23 08:00] LABS: Magnesium 1.8 mg/dL (1.9-2.7)
[2021-05-23 09:47] LABS: Ferritin 33.7 ng/mL (11-307)
[2021-05-23 10:30] LABS: Troponin I 0.08 ng/mL (<0.03)
[2021-05-23] MEDS: Nystatin TOP POWDER 15 GM BTL TOPICAL SCH ×2 (10:31→20:33)
[2021-05-23] MEDS: Famotidine IV 10 MG/ML 2 ml VIAL (20 mg) IV SLOW PU SCH (10:31)
[2021-05-23 10:50] LABS: PCO2 Arterial 62 mmHg (35-45); PO2 Arterial 76 mmHg (80-100)
[2021-05-23] MEDS ORDERED: Magnesium Sulfate 2 gm BAG 2 GM/50 ML BAG IVPB ONE (11:19)
[2021-05-23] MEDS: Iron Sucrose 200 MG in NS 0.9% 100 ml BAG 100 ML IVPB SCH (12:21)
[2021-05-23] MEDS ORDERED: acetaZOLAMIDE IV 500 MG in NS 0.9% 50 ML 50 ML IVPB SCH (15:00)
[2021-05-23] MEDS ORDERED: Ondansetron ODT 4 mg TAB 4 MG TAB SL PRN (15:55)
[2021-05-23] MEDS: Potassium Chlor 20 meq TAB.ER PO SCH ×2 (16:26→20:30)
[2021-05-24 06:37] LABS: Albumin 2.7 g/dL (3.2-5.2); Albumin/Globulin Ratio 0.9 (1-3); Calcium 8.8 mg/dL (8.6-10.3); Potassium 3.8 mmol/L (3.5-5.0); Total Bilirubin 0.5 mg/dL (0.2-1.0); Total Protein 5.7 g/dL (6.4-8.9); eGFR CKD-EPI 88.3 (>60)
[2021-05-24] MEDS ORDERED: acetaZOLAMIDE IV 500 MG in NS 0.9% 50 ML 50 ML IVPB ONE (06:54)
[2021-05-24] MEDS: FLUTICAS/UMECLI/VILANT 200-62.5-25 MDI (NF) INH SCH (08:15)
[2021-05-24] MEDS: Insulin GLARGINE 100 un/ml 10 ml VIAL SUBCUT SCH ×2 (08:55→21:04)
[2021-05-24] MEDS: Nystatin TOP POWDER 15 GM BTL TOPICAL SCH ×2 (08:56→20:30)
[2021-05-24] MEDS: Iron Sucrose 200 MG in NS 0.9% 100 ml BAG 100 ML IVPB SCH (14:28)
[2021-05-24 18:05] LABS: Calcium 8.5 mg/dL (8.6-10.3); Magnesium 1.9 mg/dL (1.9-2.7)
[2021-05-24 18:10] LABS: eGFR CKD-EPI 86.9 (>60)
[2021-05-24] MEDS ORDERED: Magnesium Sulfate IV 3 GM in NS 0.9% 100 ml BAG 100 ML IVPB ONE (19:00)
[2021-05-24] MEDS ORDERED: Potassium Chlor 20 meq TAB.ER PO ONE (19:04)
[2021-05-25 06:39] LABS: Potassium 4.1 mmol/L (3.5-5.0); eGFR CKD-EPI 86.9 (>60)
[2021-05-25] MEDS: FLUTICAS/UMECLI/VILANT 200-62.5-25 MDI (NF) INH SCH (08:15)
[2021-05-25] MEDS: Insulin GLARGINE 100 un/ml 10 ml VIAL SUBCUT SCH (09:37)
[2021-05-25] MEDS: Iron Sucrose 200 MG in NS 0.9% 100 ml BAG 100 ML IVPB SCH (09:38)
[2021-05-25] MEDS: Nystatin TOP POWDER 15 GM BTL TOPICAL SCH (10:38)
[2021-05-25 15:31] VITALS: BP 143/64
== END 2021-05-25 16:55 | disposition home health service (06) | DRG 137 ==
LOC: ED 18:33 → SUATTDRO 21:40 → EDHOLD 21:40 → ICU 23:50 → MED 05-22 17:17
PROVIDERS: ADMIT Internal Medicine; ATTEND Internal Medicine

== ENCOUNTER 2021-06-20 14:23 | Inpatient (IN) ==
[2021-06-20 15:30] LABS: Hematocrit 41 % (35-47); Hemoglobin 11.6 g/dL (12.0-16.0); Mean Corpuscular HGB Conc 29 g/dL (31-36); Mean Corpuscular Hemoglobin 22 pg (27-31); Mean Corpuscular Volume 79 fL (80-97); Mean Platelet Volume 8.2 fL (7.4-10.4); Platelet Count 285 10^3/uL (150-450); Red Blood Count 5.21 10^6 /uL (3.70-4.87); Red Cell Distribution Width 23 % (10-15); White Blood Count 10.7 10^3/uL (3.5-10.8)
[2021-06-20 15:35] LABS: Activated Partial Thrombo Time 32.5 seconds (26.0-38.0); INR 1.26 (0.86-1.15)
[2021-06-20 15:46] LABS: Troponin I 0.01 ng/mL (<0.03)
[2021-06-20 15:47] LABS: ABS Eosinophils 0.1 10^3/ul (0-0.6); ABS Lymphocytes 0.8 10^3/ul (1.0-4.8); ABS Monocytes 0.9 10^3/ul (0-0.8); ABS Neutrophils 8.9 10^3/ul (1.5-7.7); Eosinophil % 0.6 %; Lymphocyte % 7.5 %; Nucleated Red Blood Cells % 0.1
[2021-06-20 15:52] LABS: PO2 Arterial 135 mmHg (80-100)
[2021-06-20 15:59] LABS: HCG Pregnancy 0.63 mIU/mL
[2021-06-20 16:03] LABS: PCO2 Arterial 86 mmHg (35-45)
[2021-06-20 16:24] LABS: Albumin 3.4 g/dL (3.2-5.2); Albumin/Globulin Ratio 1.3 (1-3); C Reactive Protein 17.73 mg/L (<8.01); Calcium 9.8 mg/dL (8.6-10.3); Globulin 2.7 g/dL (2-4); Total Bilirubin 0.6 mg/dL (0.2-1.0); Total Protein 6.1 g/dL (6.4-8.9); eGFR CKD-EPI 85.6 (>60)
[2021-06-20 16:26] LABS: Potassium 5.3 mmol/L (3.5-5.0)
[2021-06-20] MEDS ORDERED: Albuterol 2.5mg/3 ml (0.083%) NEB.SOLN INH PRN (17:06)
[2021-06-20] MEDS ORDERED: SODIUM ZIRCONIUM CYCLOSILICATE 10 GM PACKET PO ONE (17:09)
[2021-06-20] MEDS ORDERED: Iodixanol (CONTRAST) 320 MG/ML 100 ML SDV IV ONE (17:22)
[2021-06-20] MEDS ORDERED: cefTRIAXone 1 gm/50 mL NS BAG 1 GM/50 ML BAG IVPB SCH (17:30)
[2021-06-20] MEDS ORDERED: Dextrose 50% Syringe 50 ml 25 GM/50 ML SYRINGE IV PUSH PRN (17:46)
[2021-06-20] MEDS ORDERED: Azithromycin 500 mg/250 ml NS 500 MG/250 ML BAG IVPB SCH (18:00)
[2021-06-20 19:03] LABS: Calcium 9.3 mg/dL (8.6-10.3); eGFR CKD-EPI 84.3 (>60)
[2021-06-20 19:16] LABS: Potassium 5.5 mmol/L (3.5-5.0)
[2021-06-20 19:39] LABS: PO2 Arterial 75 mmHg (80-100)
[2021-06-20 19:43] LABS: PCO2 Arterial 91 mmHg (35-45)
[2021-06-20 20:46] LABS: PO2 Arterial 77 mmHg (80-100)
[2021-06-20 20:48] LABS: PCO2 Arterial 87 mmHg (35-45)
[2021-06-20] MEDS ORDERED: Insulin ISOPH/REG 70/30 SUBCUT SCH (21:00)
[2021-06-20 21:49] LABS: PO2 Arterial 83 mmHg (80-100)
[2021-06-20 22:00] LABS: PCO2 Arterial 83 mmHg (35-45)
[2021-06-20] MEDS: cefTRIAXone 1 gm/50 mL NS BAG 1 GM/50 ML BAG IVPB SCH (22:35)
[2021-06-20] MEDS: Azithromycin 500 mg/250 ml NS 500 MG/250 ML BAG IVPB SCH (22:36)
[2021-06-21 00:01] LABS: PO2 Arterial 84 mmHg (80-100)
[2021-06-21 00:04] LABS: PCO2 Arterial 82 mmHg (35-45)
[2021-06-21] MEDS ORDERED: Succinylcholine 200 mg VIAL 20 mg/ml 10 ml VIAL (200 mg) ONE (00:27)
[2021-06-21] MEDS ORDERED: Rocuronium 50 mg VIAL 10 mg/ml 5 ml VIAL (50 mg) ONE (00:27)
[2021-06-21] MEDS ORDERED: Etomidate 40 mg/20 ml (2 MG/ML) 20 ml VIAL (40 mg) ONE (00:34)
[2021-06-21] MEDS ORDERED: Propofol 10 mg/ml 100 ML BTL 100 ML ONE (00:39)
[2021-06-21] MEDS ORDERED: fentaNYL 100 mcg/2 ml 50 MCG/ML VIAL IV SLOW PU PRN (00:48)
[2021-06-21] MEDS ORDERED: fentaNYL 100 mcg/2 ml 50 MCG/ML VIAL ONE (00:49)
[2021-06-21] MEDS: Propofol 10 mg/ml 100 ML BTL 100 ML IV SCH ×12 (00:59→23:50)
[2021-06-21 01:54] LABS: PCO2 Arterial 64 mmHg (35-45); PO2 Arterial 70 mmHg (80-100)
[2021-06-21] MEDS ORDERED: Midazolam 2 mg/2 ml VIAL 1 mg/ml 2 ml VIAL (2 mg) IV SLOW PU ONE ×2 (01:59→20:17)
[2021-06-21] MEDS: Pantoprazole VIAL 40 MG VIAL IV SCH (02:26)
[2021-06-21] MEDS: Chlorhexidine MOUTHWASH 0.12% 15 ML UDC TOPICAL SCH ×6 (02:26→21:34)
[2021-06-21] MEDS: fentaNYL 100 mcg/2 ml 50 MCG/ML VIAL IV SLOW PU PRN ×6 (03:30→23:20)
[2021-06-21 03:52] LABS: Urine Appearance Turbid; Urine Bilirubin Negative (Negative); Urine Blood 2+ (Negative); Urine Color Amber; Urine Glucose 3+(>=500 mg/dL) (Negative); Urine Ketones 1+ (Negative); Urine Nitrite Negative (Negative); Urine Protein 2+(100 mg/dL) (Negative); Urine Specific Gravity 1.058 (1.002-1.030); Urine Urobilinogen Negative (Negative)
[2021-06-21] MEDS ORDERED: hydrALAZINE 20 mg/ml 1 ML Vial IV IV SLOW PU ONE (04:05)
[2021-06-21 04:29] LABS: Urine Bacteria 1+ (Absent); Urine Red Blood Cell 3+(>10/hpf) (Absent); Urine Squamous Epithelial Cell Present (Absent); Urine White Blood Cell 3+(>20/hpf) (Absent); Urine Yeast Present (Absent)
[2021-06-21 06:44] LABS: Hematocrit 38 % (35-47); Hemoglobin 10.9 g/dL (12.0-16.0); Mean Corpuscular HGB Conc 29 g/dL (31-36); Mean Corpuscular Hemoglobin 22 pg (27-31); Mean Corpuscular Volume 77 fL (80-97); Mean Platelet Volume 8.1 fL (7.4-10.4); Platelet Count 274 10^3/uL (150-450); Red Blood Count 4.89 10^6 /uL (3.70-4.87); Red Cell Distribution Width 23 % (10-15); White Blood Count 8.3 10^3/uL (3.5-10.8)
[2021-06-21] MEDS ORDERED: SODIUM ZIRCONIUM CYCLOSILICATE 10 GM PACKET PO ONE (07:16)
[2021-06-21 07:24] LABS: Calcium 9.2 mg/dL (8.6-10.3); Magnesium 1.9 mg/dL (1.9-2.7); Potassium 4.6 mmol/L (3.5-5.0); eGFR CKD-EPI 94.1 (>60)
[2021-06-21] MEDS: Aspirin EC 81 mg TAB.EC (enteric coated) PO SCH (08:12)
[2021-06-21] MEDS ORDERED: Furosemide 40 mg/4 ml IV VIAL IV ONE ×2 (08:55→18:18)
[2021-06-21] MEDS ORDERED: CMCS: FLUTICAS/UMECLI/VILANT 200-62.5-25 MDI (NF) INH SCH (09:00)
[2021-06-21] MEDS ORDERED: Insulin ISOPH/REG 70/30 SUBCUT SCH (09:00)
[2021-06-21] MEDS: Albuterol/Ipratropium NEB.SOL (2.5/0.5 MG) 3 ML NEB.SOLN INH SCH ×2 (11:04→19:30)
[2021-06-21] MEDS ORDERED: Perflutren Lipid Microsphere 3 ML VIAL ONE (15:12)
[2021-06-21] MEDS: Azithromycin 500 mg/250 ml NS 500 MG/250 ML BAG IVPB SCH (21:34)
[2021-06-21] MEDS: cefTRIAXone 1 gm/50 mL NS BAG 1 GM/50 ML BAG IVPB SCH (21:34)
[2021-06-22] MEDS: Albuterol/Ipratropium NEB.SOL (2.5/0.5 MG) 3 ML NEB.SOLN INH SCH ×2 (00:50→08:19)
[2021-06-22] MEDS: Chlorhexidine MOUTHWASH 0.12% 15 ML UDC TOPICAL SCH ×4 (02:00→14:39)
[2021-06-22] MEDS: Pantoprazole VIAL 40 MG VIAL IV SCH (02:00)
[2021-06-22] MEDS: Propofol 10 mg/ml 100 ML BTL 100 ML IV SCH ×5 (02:11→09:52)
[2021-06-22] MEDS: fentaNYL 100 mcg/2 ml 50 MCG/ML VIAL IV SLOW PU PRN ×2 (03:35→06:35)
[2021-06-22] MEDS ORDERED: Metoprolol Tartrate 5 mg VIAL 5 ml VIAL (1 mg/ml) IV ONE ×2 (07:12→10:17)
[2021-06-22 08:00] LABS: ABS Lymphocytes 1.3 10^3/ul (1.0-4.8); ABS Monocytes 1.2 10^3/ul (0-0.8); ABS Neutrophils 8.5 10^3/ul (1.5-7.7); Hematocrit 37 % (35-47); Hemoglobin 10.8 g/dL (12.0-16.0); Lymphocyte % 11.6 %; Mean Corpuscular HGB Conc 30 g/dL (31-36); Mean Corpuscular Hemoglobin 22 pg (27-31); Mean Corpuscular Volume 76 fL (80-97); Mean Platelet Volume 8.2 fL (7.4-10.4); Platelet Count 295 10^3/uL (150-450); Red Blood Count 4.82 10^6 /uL (3.70-4.87); Red Cell Distribution Width 23 % (10-15)
[2021-06-22 08:45] LABS: Calcium 8.9 mg/dL (8.6-10.3); Magnesium 1.7 mg/dL (1.9-2.7); Potassium 4.9 mmol/L (3.5-5.0); eGFR CKD-EPI 70.4 (>60)
[2021-06-22] MEDS ORDERED: Furosemide 40 mg/4 ml IV VIAL IV ONE (08:48)
[2021-06-22] MEDS ORDERED: Metoprolol Succinate XL 200 mg TAB PO SCH (09:00)
[2021-06-22] MEDS: Aspirin EC 81 mg TAB.EC (enteric coated) PO SCH (09:41)
[2021-06-22 10:54] LABS: PCO2 Arterial 66 mmHg (35-45); PO2 Arterial 74 mmHg (80-100)
[2021-06-22] MEDS ORDERED: Diltiazem IV push/loading dose 5 MG/ML 5 ML vial (25 mg) IV SLOW PU ONE (11:15)
[2021-06-22] MEDS ORDERED: Diltiazem IV BAG D5W Premix 125 MG/125 ML BAG IV SCH (12:00)
[2021-06-22] MEDS ORDERED: Digoxin LIQ ORALSYR 0.05 MG/ML 1 ML FEED TUBE ONE (12:09)
[2021-06-22] MEDS ORDERED: Norepinephrine 16MCG/ML BAGD5W 4,000 MCG/250 ML BAG IV SCH (13:00)
[2021-06-22] MEDS: Dexmedetomidine 1,000 MCG in NS 0.9% 250 ml 240 ML IV SCH (20:43)
[2021-06-22] MEDS: cefTRIAXone 1 gm/50 mL NS BAG 1 GM/50 ML BAG IVPB SCH (21:44)
[2021-06-22] MEDS: Azithromycin 500 mg/250 ml NS 500 MG/250 ML BAG IVPB SCH (21:47)
[2021-06-23] MEDS: Pantoprazole VIAL 40 MG VIAL IV SCH (02:19)
[2021-06-23 04:37] LABS: ABS Lymphocytes 0.7 10^3/ul (1.0-4.8); ABS Monocytes 0.7 10^3/ul (0-0.8); ABS Neutrophils 6.7 10^3/ul (1.5-7.7); Eosinophil % 0.2 %; Hematocrit 37 % (35-47); Hemoglobin 10.8 g/dL (12.0-16.0); Lymphocyte % 8.5 %; Mean Corpuscular HGB Conc 29 g/dL (31-36); Mean Corpuscular Hemoglobin 22 pg (27-31); Mean Corpuscular Volume 76 fL (80-97); Mean Platelet Volume 8.2 fL (7.4-10.4); Platelet Count 267 10^3/uL (150-450); Red Blood Count 4.85 10^6 /uL (3.70-4.87); Red Cell Distribution Width 23 % (10-15); White Blood Count 8.2 10^3/uL (3.5-10.8)
[2021-06-23] MEDS: Dexmedetomidine 1,000 MCG in NS 0.9% 250 ml 240 ML IV SCH (04:54)
[2021-06-23 05:07] LABS: Calcium 8.5 mg/dL (8.6-10.3); Magnesium 1.8 mg/dL (1.9-2.7)
[2021-06-23 05:13] LABS: eGFR CKD-EPI 69.5 (>60)
[2021-06-23 05:14] LABS: Potassium 5.6 mmol/L (3.5-5.0)
[2021-06-23] MEDS ORDERED: Furosemide 100 mg/10 ml IV VIAL IV ONE (08:24)
[2021-06-23] MEDS: Aspirin EC 81 mg TAB.EC (enteric coated) PO SCH (09:30)
[2021-06-23] MEDS: Albuterol/Ipratropium NEB.SOL (2.5/0.5 MG) 3 ML NEB.SOLN INH SCH ×3 (12:13→22:52)
[2021-06-23] MEDS ORDERED: Magnesium Sulfate 2 gm BAG 2 GM/50 ML BAG IVPB ONE (18:18)
[2021-06-23 19:27] LABS: Albumin/Globulin Ratio 1.2 (1-3); Calcium 8.8 mg/dL (8.6-10.3); Globulin 2.6 g/dL (2-4); Magnesium 1.7 mg/dL (1.9-2.7); Phosphorus 4.1 mg/dL (2.5-5.0); Potassium 4.8 mmol/L (3.5-5.0); Total Bilirubin 0.6 mg/dL (0.2-1.0); Total Protein 5.6 g/dL (6.4-8.9); eGFR CKD-EPI 74.2 (>60)
[2021-06-23] MEDS ORDERED: Insulin GLARGINE 100 un/ml 10 ml VIAL SUBCUT SCH (21:00)
[2021-06-23] MEDS: cefTRIAXone 1 gm/50 mL NS BAG 1 GM/50 ML BAG IVPB SCH (21:46)
[2021-06-24] MEDS: Pantoprazole VIAL 40 MG VIAL IV SCH (00:27)
[2021-06-24] MEDS: Albuterol/Ipratropium NEB.SOL (2.5/0.5 MG) 3 ML NEB.SOLN INH SCH ×3 (01:57→14:26)
[2021-06-24] MEDS: Aspirin EC 81 mg TAB.EC (enteric coated) PO SCH (08:52)
[2021-06-24] MEDS ORDERED: Insulin GLARGINE 100 un/ml 10 ml VIAL SUBCUT ONE ×2 (09:03→18:30)
[2021-06-24 10:11] LABS: Magnesium 2.1 mg/dL (1.9-2.7); Potassium 4.1 mmol/L (3.5-5.0); eGFR CKD-EPI 81.8 (>60)
[2021-06-24] MEDS ORDERED: Albuterol/Ipratropium NEB.SOL (2.5/0.5 MG) 3 ML NEB.SOLN INH PRN (18:36)
[2021-06-24 22:17] LABS: Glucose Confirmatory 439 mg/dL (70-100)
[2021-06-24] MEDS: Insulin GLARGINE 100 un/ml 10 ml VIAL SUBCUT SCH (22:50)
[2021-06-24] MEDS: cefTRIAXone 1 gm/50 mL NS BAG 1 GM/50 ML BAG IVPB SCH (22:53)
[2021-06-25] MEDS: Pantoprazole VIAL 40 MG VIAL IV SCH (00:46)
[2021-06-25 09:26] LABS: ABS Eosinophils 0.1 10^3/ul (0-0.6); ABS Lymphocytes 1.1 10^3/ul (1.0-4.8); ABS Monocytes 0.7 10^3/ul (0-0.8); ABS Neutrophils 6.6 10^3/ul (1.5-7.7); Eosinophil % 1.2 %; Hematocrit 41 % (35-47); Hemoglobin 11.8 g/dL (12.0-16.0); Mean Corpuscular HGB Conc 29 g/dL (31-36); Mean Corpuscular Hemoglobin 22 pg (27-31); Mean Corpuscular Volume 77 fL (80-97); Mean Platelet Volume 7.9 fL (7.4-10.4); Nucleated Red Blood Cells % 0.1; Platelet Count 320 10^3/uL (150-450); Red Blood Count 5.41 10^6 /uL (3.70-4.87); Red Cell Distribution Width 22 % (10-15); White Blood Count 8.5 10^3/uL (3.5-10.8)
[2021-06-25 09:50] LABS: Calcium 9.4 mg/dL (8.6-10.3); Magnesium 2.1 mg/dL (1.9-2.7); Potassium 4.3 mmol/L (3.5-5.0); eGFR CKD-EPI 89.7 (>60)
[2021-06-25] MEDS: Furosemide 40 mg/4 ml IV VIAL IV SLOW PU SCH ×2 (10:44→17:15)
[2021-06-25] MEDS: Aspirin EC 81 mg TAB.EC (enteric coated) PO SCH (10:44)
[2021-06-25] MEDS ORDERED: Furosemide 40 mg/4 ml IV VIAL IV SLOW PU SCH (17:00)
[2021-06-25 17:41] LABS: Glucose Confirmatory 455 mg/dL (70-100)
[2021-06-25] MEDS ORDERED: COVID-19 VACCINE, MRNA(MODERNA)/PF 100 MCG/0.5 ML IM ONE (18:35)
[2021-06-25 21:21] LABS: Glucose Confirmatory 431 mg/dL (70-100)
[2021-06-25] MEDS: Insulin GLARGINE 100 un/ml 10 ml VIAL SUBCUT SCH (21:46)
[2021-06-26] MEDS: Aspirin EC 81 mg TAB.EC (enteric coated) PO SCH (08:38)
[2021-06-26] MEDS: Furosemide 40 mg/4 ml IV VIAL IV SLOW PU SCH ×2 (08:39→16:58)
[2021-06-26 10:47] LABS: Calcium 9.2 mg/dL (8.6-10.3); Potassium 4.7 mmol/L (3.5-5.0); eGFR CKD-EPI 84.3 (>60)
[2021-06-26] MEDS ORDERED: Benzocaine/Menthol LOZ MT PRN (15:17)
[2021-06-26] MEDS: Insulin GLARGINE 100 un/ml 10 ml VIAL SUBCUT SCH (20:58)
[2021-06-26] MEDS ORDERED: Insulin GLARGINE 100 un/ml 10 ml VIAL SUBCUT SCH (21:00)
[2021-06-27] MEDS: Aspirin EC 81 mg TAB.EC (enteric coated) PO SCH (08:14)
[2021-06-27] MEDS: Furosemide 40 mg/4 ml IV VIAL IV SLOW PU SCH ×2 (08:18→17:51)
[2021-06-27 09:23] LABS: Calcium 9.1 mg/dL (8.6-10.3); Potassium 3.7 mmol/L (3.5-5.0); eGFR CKD-EPI 95.7 (>60)
[2021-06-27 21:34] LABS: Glucose Confirmatory 415 mg/dL (70-100)
[2021-06-27] MEDS: Insulin GLARGINE 100 un/ml 10 ml VIAL SUBCUT SCH (22:45)
[2021-06-28 07:16] LABS: Potassium 3.7 mmol/L (3.5-5.0); eGFR CKD-EPI 99.3 (>60)
[2021-06-28 07:25] LABS: ABS Basophils 0.1 10^3/ul (0-0.2); ABS Monocytes 0.8 10^3/ul (0-0.8); ABS Neutrophils 6.8 10^3/ul (1.5-7.7); Eosinophil % 0.5 %; Hematocrit 39 % (35-47); Hemoglobin 11.2 g/dL (12.0-16.0); Mean Corpuscular HGB Conc 29 g/dL (31-36); Mean Corpuscular Hemoglobin 22 pg (27-31); Mean Corpuscular Volume 78 fL (80-97); Mean Platelet Volume 8.4 fL (7.4-10.4); Nucleated Red Blood Cells % 0.1; Platelet Count 263 10^3/uL (150-450); Red Blood Count 4.99 10^6 /uL (3.70-4.87); Red Cell Distribution Width 21 % (10-15); White Blood Count 8.8 10^3/uL (3.5-10.8)
[2021-06-28] MEDS: Furosemide 40 mg/4 ml IV VIAL IV SLOW PU SCH (08:18)
[2021-06-28] MEDS: Aspirin EC 81 mg TAB.EC (enteric coated) PO SCH (08:18)
[2021-06-28 11:42] VITALS: BP 138/70
== END 2021-06-28 12:22 | disposition swing bed (61) | DRG 133 ==
LOC: ED 14:23 → ICU 16:50 → SUATTDRO 16:50 → ICU 18:04 → MED 06-24 14:09
PROVIDERS: ADMIT Internal Medicine; ATTEND Internal Medicine

== ENCOUNTER 2021-06-28 12:55 | Inpatient (IN) ==
[2021-06-28] MEDS ORDERED: Dextrose 50% Syringe 50 ml 25 GM/50 ML SYRINGE IV PUSH PRN (13:35)
[2021-06-28] MEDS ORDERED: Benzocaine/Menthol LOZ MT PRN (13:40)
[2021-06-28 17:29] LABS: Rapid COVID-19 Molecular Undetected (Undetected)
[2021-06-28] MEDS: Furosemide 40 mg/4 ml IV VIAL IV SLOW PU SCH (18:29)
[2021-06-28] MEDS ORDERED: Insulin GLARGINE 100 un/ml 10 ml VIAL SUBCUT SCH (21:00)
[2021-06-29 07:30] LABS: Calcium 8.8 mg/dL (8.6-10.3); Potassium 3.4 mmol/L (3.5-5.0); eGFR CKD-EPI 99.3 (>60)
[2021-06-29] MEDS: FLUTICAS/UMECLI/VILANT 200-62.5-25 MDI (NF) INH SCH (07:34)
[2021-06-29 08:11] LABS: Glucose Confirmatory 408 mg/dL (70-100)
[2021-06-29] MEDS ORDERED: Aspirin EC 81 mg TAB.EC (enteric coated) PO SCH (09:00)
[2021-06-29] MEDS ORDERED: Dextrose 50% Syringe 50 ml 25 GM/50 ML SYRINGE IV PUSH PRN (09:13)
[2021-06-29] MEDS: Fluticasone NASAL SPRAY 50MCG 16 gm SPRAY BTL INTRANASAL SCH (10:33)
[2021-06-29] MEDS: Potassium Chloride LIQUID 20 MEQ/15 ML LIQUID PO SCH ×2 (10:34→13:02)
[2021-06-29] MEDS: Iron Sucrose 200 MG in NS 0.9% 100 ml BAG 100 ML IVPB SCH (10:36)
[2021-06-29] MEDS: Furosemide 40 mg/4 ml IV VIAL IV SLOW PU SCH (10:37)
[2021-06-29] MEDS: Insulin GLARGINE 100 un/ml 10 ml VIAL SUBCUT SCH (23:23)
[2021-06-30 07:05] LABS: ABS Eosinophils 0.1 10^3/ul (0-0.6); ABS Lymphocytes 1.1 10^3/ul (1.0-4.8); ABS Monocytes 0.7 10^3/ul (0-0.8); ABS Neutrophils 7.5 10^3/ul (1.5-7.7); Eosinophil % 0.7 %; Hematocrit 38 % (35-47); Lymphocyte % 11.5 %; Mean Corpuscular HGB Conc 29 g/dL (31-36); Mean Corpuscular Hemoglobin 22 pg (27-31); Mean Corpuscular Volume 77 fL (80-97); Mean Platelet Volume 8.6 fL (7.4-10.4); Platelet Count 289 10^3/uL (150-450); Red Blood Count 4.95 10^6 /uL (3.70-4.87); Red Cell Distribution Width 22 % (10-15); White Blood Count 9.4 10^3/uL (3.5-10.8)
[2021-06-30 07:11] LABS: Calcium 8.8 mg/dL (8.6-10.3); Magnesium 1.7 mg/dL (1.9-2.7); Potassium 3.4 mmol/L (3.5-5.0); eGFR CKD-EPI 102.3 (>60)
[2021-06-30] MEDS ORDERED: Magnesium Sulfate 2 gm BAG 2 GM/50 ML BAG IVPB ONE (07:56)
[2021-06-30] MEDS ORDERED: Potassium Chloride LIQUID 20 MEQ/15 ML LIQUID PO ONE (07:56)
[2021-06-30] MEDS: FLUTICAS/UMECLI/VILANT 200-62.5-25 MDI (NF) INH SCH (08:09)
[2021-06-30] MEDS: Fluticasone NASAL SPRAY 50MCG 16 gm SPRAY BTL INTRANASAL SCH (11:06)
[2021-06-30] MEDS: Iron Sucrose 200 MG in NS 0.9% 100 ml BAG 100 ML IVPB SCH (11:44)
[2021-06-30] MEDS: Insulin GLARGINE 100 un/ml 10 ml VIAL SUBCUT SCH (21:31)
[2021-07-01 06:39] LABS: ABS Eosinophils 0.1 10^3/ul (0-0.6); ABS Monocytes 0.7 10^3/ul (0-0.8); ABS Neutrophils 6.7 10^3/ul (1.5-7.7); Eosinophil % 0.9 %; Hematocrit 38 % (35-47); Hemoglobin 11.1 g/dL (12.0-16.0); Lymphocyte % 11.9 %; Mean Corpuscular HGB Conc 29 g/dL (31-36); Mean Corpuscular Hemoglobin 23 pg (27-31); Mean Corpuscular Volume 77 fL (80-97); Mean Platelet Volume 8.3 fL (7.4-10.4); Platelet Count 291 10^3/uL (150-450); Red Blood Count 4.95 10^6 /uL (3.70-4.87); Red Cell Distribution Width 22 % (10-15); White Blood Count 8.6 10^3/uL (3.5-10.8)
[2021-07-01 07:08] LABS: Magnesium 1.8 mg/dL (1.9-2.7); Potassium 3.6 mmol/L (3.5-5.0); eGFR CKD-EPI 101.5 (>60)
[2021-07-01] MEDS: FLUTICAS/UMECLI/VILANT 200-62.5-25 MDI (NF) INH SCH (07:48)
[2021-07-01] MEDS: Fluticasone NASAL SPRAY 50MCG 16 gm SPRAY BTL INTRANASAL SCH (08:06)
[2021-07-01] MEDS ORDERED: Magnesium Sulfate IV 1GM/100ML 1 GM/100 ML BAG IV ONE (08:12)
[2021-07-01] MEDS: Iron Sucrose 200 MG in NS 0.9% 100 ml BAG 100 ML IVPB SCH (08:15)
[2021-07-01] MEDS ORDERED: Dextrose 50% Syringe 50 ml 25 GM/50 ML SYRINGE IV PUSH PRN (09:55)
[2021-07-01] MEDS ORDERED: Insulin GLARGINE 100 un/ml 10 ml VIAL SUBCUT SCH (21:00)
[2021-07-02 07:03] LABS: Calcium 8.9 mg/dL (8.6-10.3); Magnesium 1.7 mg/dL (1.9-2.7); Potassium 3.8 mmol/L (3.5-5.0); eGFR CKD-EPI 101.9 (>60)
[2021-07-02 07:52] LABS: ABS Eosinophils 0.1 10^3/ul (0-0.6); ABS Lymphocytes 0.9 10^3/ul (1.0-4.8); ABS Monocytes 0.7 10^3/ul (0-0.8); ABS Neutrophils 6.4 10^3/ul (1.5-7.7); Eosinophil % 0.8 %; Hematocrit 37 % (35-47); Hemoglobin 10.8 g/dL (12.0-16.0); Lymphocyte % 10.7 %; Mean Corpuscular HGB Conc 29 g/dL (31-36); Mean Corpuscular Hemoglobin 23 pg (27-31); Mean Corpuscular Volume 77 fL (80-97); Mean Platelet Volume 8.4 fL (7.4-10.4); Platelet Count 269 10^3/uL (150-450); Red Blood Count 4.81 10^6 /uL (3.70-4.87); Red Cell Distribution Width 22 % (10-15); White Blood Count 8.1 10^3/uL (3.5-10.8)
[2021-07-02 07:53] LABS: Microcytosis 1+
[2021-07-02 07:54] LABS: Anisocytosis 2+; Hypochromasia 1+
[2021-07-02 07:55] LABS: Basophilic Stippling 1+; Polychromasia 1+
[2021-07-02] MEDS: FLUTICAS/UMECLI/VILANT 200-62.5-25 MDI (NF) INH SCH (08:07)
[2021-07-02] MEDS ORDERED: Magnesium Sulfate 2 gm BAG 2 GM/50 ML BAG IVPB ONE (08:18)
[2021-07-02] MEDS: Fluticasone NASAL SPRAY 50MCG 16 gm SPRAY BTL INTRANASAL SCH (09:12)
[2021-07-02] MEDS: Iron Sucrose 200 MG in NS 0.9% 100 ml BAG 100 ML IVPB SCH (11:45)
[2021-07-02] MEDS: Insulin GLARGINE 100 un/ml 10 ml VIAL SUBCUT SCH (20:33)
[2021-07-03] MEDS: FLUTICAS/UMECLI/VILANT 200-62.5-25 MDI (NF) INH SCH (08:07)
[2021-07-03] MEDS: Fluticasone NASAL SPRAY 50MCG 16 gm SPRAY BTL INTRANASAL SCH (08:46)
[2021-07-03] MEDS: Iron Sucrose 200 MG in NS 0.9% 100 ml BAG 100 ML IVPB SCH (11:08)
[2021-07-03] MEDS: Insulin GLARGINE 100 un/ml 10 ml VIAL SUBCUT SCH (20:36)
[2021-07-04] MEDS: FLUTICAS/UMECLI/VILANT 200-62.5-25 MDI (NF) INH SCH (07:12)
[2021-07-04] MEDS: Fluticasone NASAL SPRAY 50MCG 16 gm SPRAY BTL INTRANASAL SCH (08:07)
[2021-07-04] MEDS: Insulin GLARGINE 100 un/ml 10 ml VIAL SUBCUT SCH (20:12)
[2021-07-05] MEDS: FLUTICAS/UMECLI/VILANT 200-62.5-25 MDI (NF) INH SCH (07:55)
[2021-07-05] MEDS: Fluticasone NASAL SPRAY 50MCG 16 gm SPRAY BTL INTRANASAL SCH (08:58)
[2021-07-05] MEDS: Insulin GLARGINE 100 un/ml 10 ml VIAL SUBCUT SCH (21:07)
[2021-07-06] MEDS: FLUTICAS/UMECLI/VILANT 200-62.5-25 MDI (NF) INH SCH (07:21)
[2021-07-06] MEDS: Fluticasone NASAL SPRAY 50MCG 16 gm SPRAY BTL INTRANASAL SCH (08:45)
[2021-07-06] MEDS ORDERED: Albuterol HFA INHALER 8 gm MDI INH PRN (10:03)
[2021-07-06] MEDS: Levalbuterol HFA INHALER MDI INH PRN (10:14)
[2021-07-06 17:11] LABS: Calcium 8.8 mg/dL (8.6-10.3); eGFR CKD-EPI 95.7 (>60)
[2021-07-06] MEDS: Insulin GLARGINE 100 un/ml 10 ml VIAL SUBCUT SCH (20:51)
[2021-07-07] MEDS: Fluticasone NASAL SPRAY 50MCG 16 gm SPRAY BTL INTRANASAL SCH (07:47)
[2021-07-07] MEDS: FLUTICAS/UMECLI/VILANT 200-62.5-25 MDI (NF) INH SCH (08:34)
[2021-07-07] MEDS: Insulin GLARGINE 100 un/ml 10 ml VIAL SUBCUT SCH (20:28)
[2021-07-08] MEDS: FLUTICAS/UMECLI/VILANT 200-62.5-25 MDI (NF) INH SCH (07:59)
[2021-07-08] MEDS: Levalbuterol HFA INHALER MDI INH PRN (08:01)
[2021-07-08] MEDS: Fluticasone NASAL SPRAY 50MCG 16 gm SPRAY BTL INTRANASAL SCH (10:23)
[2021-07-08] MEDS: Insulin GLARGINE 100 un/ml 10 ml VIAL SUBCUT SCH (20:35)
[2021-07-09] MEDS: FLUTICAS/UMECLI/VILANT 200-62.5-25 MDI (NF) INH SCH (07:55)
[2021-07-09] MEDS: Levalbuterol HFA INHALER MDI INH PRN (07:55)
[2021-07-09] MEDS: Fluticasone NASAL SPRAY 50MCG 16 gm SPRAY BTL INTRANASAL SCH (09:10)
[2021-07-09] MEDS: Insulin GLARGINE 100 un/ml 10 ml VIAL SUBCUT SCH (21:27)
[2021-07-10 06:21] LABS: Calcium 8.6 mg/dL (8.6-10.3); Magnesium 1.7 mg/dL (1.9-2.7); Potassium 4.5 mmol/L (3.5-5.0); eGFR CKD-EPI 88.3 (>60)
[2021-07-10] MEDS: FLUTICAS/UMECLI/VILANT 200-62.5-25 MDI (NF) INH SCH (08:13)
[2021-07-10] MEDS: Levalbuterol HFA INHALER MDI INH PRN (08:14)
[2021-07-10] MEDS: Fluticasone NASAL SPRAY 50MCG 16 gm SPRAY BTL INTRANASAL SCH (09:35)
[2021-07-10] MEDS: Insulin GLARGINE 100 un/ml 10 ml VIAL SUBCUT SCH (20:42)
[2021-07-11] MEDS: Levalbuterol HFA INHALER MDI INH PRN (07:58)
[2021-07-11] MEDS: FLUTICAS/UMECLI/VILANT 200-62.5-25 MDI (NF) INH SCH (08:02)
[2021-07-11] MEDS: Fluticasone NASAL SPRAY 50MCG 16 gm SPRAY BTL INTRANASAL SCH (08:22)
[2021-07-11] MEDS: Insulin GLARGINE 100 un/ml 10 ml VIAL SUBCUT SCH (20:31)
[2021-07-12] MEDS: FLUTICAS/UMECLI/VILANT 200-62.5-25 MDI (NF) INH SCH (07:59)
[2021-07-12] MEDS: Fluticasone NASAL SPRAY 50MCG 16 gm SPRAY BTL INTRANASAL SCH (08:49)
[2021-07-12] MEDS: Levalbuterol HFA INHALER MDI INH PRN (17:56)
[2021-07-12] MEDS: Insulin GLARGINE 100 un/ml 10 ml VIAL SUBCUT SCH (20:52)
[2021-07-13 06:40] LABS: Hematocrit 37 % (35-47); Hemoglobin 11.1 g/dL (12.0-16.0); Mean Corpuscular HGB Conc 30 g/dL (31-36); Mean Corpuscular Hemoglobin 24 pg (27-31); Mean Corpuscular Volume 80 fL (80-97); Mean Platelet Volume 7.3 fL (7.4-10.4); Platelet Count 359 10^3/uL (150-450); Red Cell Distribution Width 24 % (10-15); White Blood Count 6.9 10^3/uL (3.5-10.8)
[2021-07-13 06:56] LABS: Calcium 9.3 mg/dL (8.6-10.3); Magnesium 1.7 mg/dL (1.9-2.7); Potassium 4.6 mmol/L (3.5-5.0); eGFR CKD-EPI 94.1 (>60)
[2021-07-13] MEDS: Levalbuterol HFA INHALER MDI INH PRN (07:24)
[2021-07-13] MEDS: FLUTICAS/UMECLI/VILANT 200-62.5-25 MDI (NF) INH SCH (07:24)
[2021-07-13 07:28] LABS: ABS Eosinophils 0.1 10^3/ul (0-0.6); ABS Lymphocytes 1.1 10^3/ul (1.0-4.8); ABS Monocytes 0.5 10^3/ul (0-0.8); ABS Neutrophils 5.1 10^3/ul (1.5-7.7); Eosinophil % 1.1 %; Lymphocyte % 16.5 %; Nucleated Red Blood Cells % 0.1
[2021-07-13] MEDS: Fluticasone NASAL SPRAY 50MCG 16 gm SPRAY BTL INTRANASAL SCH (08:07)
[2021-07-13] MEDS ORDERED: Magnesium Sulfate 2 gm BAG 2 GM/50 ML BAG IVPB ONE (08:12)
[2021-07-13] MEDS: Insulin GLARGINE 100 un/ml 10 ml VIAL SUBCUT SCH (21:36)
[2021-07-14 06:09] LABS: Rapid COVID-19 Molecular Undetected (Undetected)
[2021-07-14] MEDS: FLUTICAS/UMECLI/VILANT 200-62.5-25 MDI (NF) INH SCH (08:51)
[2021-07-14] MEDS: Fluticasone NASAL SPRAY 50MCG 16 gm SPRAY BTL INTRANASAL SCH (09:33)
[2021-07-14] MEDS: Insulin GLARGINE 100 un/ml 10 ml VIAL SUBCUT SCH (21:00)
[2021-07-15] MEDS: FLUTICAS/UMECLI/VILANT 200-62.5-25 MDI (NF) INH SCH (08:26)
[2021-07-15] MEDS: Fluticasone NASAL SPRAY 50MCG 16 gm SPRAY BTL INTRANASAL SCH (11:50)
[2021-07-15] MEDS: Insulin GLARGINE 100 un/ml 10 ml VIAL SUBCUT SCH (20:24)
[2021-07-16 07:09] LABS: Hematocrit 35 % (35-47); Hemoglobin 10.9 g/dL (12.0-16.0); Mean Corpuscular HGB Conc 31 g/dL (31-36); Mean Corpuscular Hemoglobin 24 pg (27-31); Mean Corpuscular Volume 79 fL (80-97); Mean Platelet Volume 7.1 fL (7.4-10.4); Platelet Count 344 10^3/uL (150-450); Red Blood Count 4.51 10^6 /uL (3.70-4.87); Red Cell Distribution Width 25 % (10-15); White Blood Count 6.5 10^3/uL (3.5-10.8)
[2021-07-16 07:13] LABS: ABS Eosinophils 0.1 10^3/ul (0-0.6); ABS Lymphocytes 1.2 10^3/ul (1.0-4.8); ABS Monocytes 0.8 10^3/ul (0-0.8); ABS Neutrophils 4.4 10^3/ul (1.5-7.7); Eosinophil % 1.7 %; Lymphocyte % 18.4 %
[2021-07-16] MEDS: FLUTICAS/UMECLI/VILANT 200-62.5-25 MDI (NF) INH SCH (07:46)
[2021-07-16 07:54] LABS: Calcium 9.3 mg/dL (8.6-10.3); eGFR CKD-EPI 88.3 (>60)
[2021-07-16 09:13] LABS: Magnesium 1.6 mg/dL (1.9-2.7)
[2021-07-16] MEDS: Fluticasone NASAL SPRAY 50MCG 16 gm SPRAY BTL INTRANASAL SCH (12:57)
[2021-07-16] MEDS: Insulin GLARGINE 100 un/ml 10 ml VIAL SUBCUT SCH (21:31)
[2021-07-17] MEDS: FLUTICAS/UMECLI/VILANT 200-62.5-25 MDI (NF) INH SCH (08:17)
[2021-07-17] MEDS: Fluticasone NASAL SPRAY 50MCG 16 gm SPRAY BTL INTRANASAL SCH (08:50)
[2021-07-17] MEDS: Insulin GLARGINE 100 un/ml 10 ml VIAL SUBCUT SCH (20:55)
[2021-07-18] MEDS: FLUTICAS/UMECLI/VILANT 200-62.5-25 MDI (NF) INH SCH (08:44)
[2021-07-18] MEDS: Fluticasone NASAL SPRAY 50MCG 16 gm SPRAY BTL INTRANASAL SCH (09:22)
[2021-07-18] MEDS: Insulin GLARGINE 100 un/ml 10 ml VIAL SUBCUT SCH (21:27)
[2021-07-19 08:03] VITALS: BP 143/76
[2021-07-19] MEDS: Fluticasone NASAL SPRAY 50MCG 16 gm SPRAY BTL INTRANASAL SCH (08:20)
[2021-07-19] MEDS: Levalbuterol HFA INHALER MDI INH PRN (08:29)
[2021-07-19] MEDS: FLUTICAS/UMECLI/VILANT 200-62.5-25 MDI (NF) INH SCH (08:30)
== END 2021-07-19 10:10 | DRG 133 ==
LOC: MED 12:55 → SUATTDRO 12:55
PROVIDERS: ADMIT Internal Medicine; ATTEND Internal Medicine

== ENCOUNTER 2021-07-19 07:23 | Inpatient (IN) ==
[2021-07-19] MEDS ORDERED: Magnesium Hydroxide LIQ 30 ML UDC PO PRN (09:38)
[2021-07-19] MEDS ORDERED: Al Hydrox/Mg Hydrox/Simet LIQ 30 ML UDC PO PRN (09:38)
[2021-07-19] MEDS ORDERED: Senna TAB 8.6 mg TAB PO PRN (09:38)
[2021-07-19] MEDS ORDERED: Dextrose 50% Syringe 50 ml 25 GM/50 ML SYRINGE IV PUSH PRN ×2 (11:18→11:24)
[2021-07-19] MEDS ORDERED: Levalbuterol HFA INHALER MDI INH PRN (11:30)
[2021-07-19] MEDS ORDERED: Insulin GLARGINE 100 un/ml 10 ml VIAL SUBCUT SCH (21:00)
[2021-07-20 06:38] LABS: ABS Eosinophils 0.1 10^3/ul (0-0.6); ABS Lymphocytes 0.9 10^3/ul (1.0-4.8); ABS Monocytes 0.6 10^3/ul (0-0.8); ABS Neutrophils 4.4 10^3/ul (1.5-7.7); Eosinophil % 1.6 %; Hematocrit 35 % (35-47); Hemoglobin 10.6 g/dL (12.0-16.0); Lymphocyte % 15.4 %; Mean Corpuscular HGB Conc 30 g/dL (31-36); Mean Corpuscular Hemoglobin 24 pg (27-31); Mean Corpuscular Volume 81 fL (80-97); Mean Platelet Volume 7.6 fL (7.4-10.4); Nucleated Red Blood Cells % 0.1; Platelet Count 272 10^3/uL (150-450); Red Blood Count 4.36 10^6 /uL (3.70-4.87); Red Cell Distribution Width 24 % (10-15); White Blood Count 6.1 10^3/uL (3.5-10.8)
[2021-07-20 06:57] LABS: Albumin 3.1 g/dL (3.2-5.2); Albumin/Globulin Ratio 1.3 (1-3); Calcium 8.7 mg/dL (8.6-10.3); Globulin 2.4 g/dL (2-4); Magnesium 1.9 mg/dL (1.9-2.7); Total Bilirubin 0.8 mg/dL (0.2-1.0); Total Protein 5.5 g/dL (6.4-8.9)
[2021-07-20] MEDS: FLUTICAS/UMECLI/VILANT 200-62.5-25 MDI (NF) INH SCH (09:33)
[2021-07-20] MEDS: Fluticasone NASAL SPRAY 50MCG 16 gm SPRAY BTL BOTH NARES SCH (11:38)
[2021-07-20] MEDS: Insulin GLARGINE 100 un/ml 10 ml VIAL SUBCUT SCH (21:25)
[2021-07-21] MEDS: Fluticasone NASAL SPRAY 50MCG 16 gm SPRAY BTL BOTH NARES SCH (08:47)
[2021-07-21] MEDS: FLUTICAS/UMECLI/VILANT 200-62.5-25 MDI (NF) INH SCH (09:04)
[2021-07-21] MEDS: Bacitracin OINTMENT TUBE TOPICAL SCH (12:16)
[2021-07-21 13:24] LABS: Urine Appearance Clear; Urine Bilirubin Negative (Negative); Urine Blood Negative (Negative); Urine Color Straw; Urine Glucose Negative (Negative); Urine Ketones Negative (Negative); Urine Nitrite Negative (Negative); Urine Protein Negative (Negative); Urine Specific Gravity 1.005 (1.002-1.030); Urine Urobilinogen Negative (Negative)
[2021-07-21] MEDS: Insulin GLARGINE 100 un/ml 10 ml VIAL SUBCUT SCH (21:55)
[2021-07-22] MEDS: Bacitracin OINTMENT TUBE TOPICAL SCH (09:10)
[2021-07-22] MEDS: Fluticasone NASAL SPRAY 50MCG 16 gm SPRAY BTL BOTH NARES SCH (09:11)
[2021-07-22] MEDS: FLUTICAS/UMECLI/VILANT 200-62.5-25 MDI (NF) INH SCH (09:11)
[2021-07-22] MEDS: Insulin GLARGINE 100 un/ml 10 ml VIAL SUBCUT SCH (20:59)
[2021-07-23] MEDS: FLUTICAS/UMECLI/VILANT 200-62.5-25 MDI (NF) INH SCH (07:46)
[2021-07-23] MEDS: Bacitracin OINTMENT TUBE TOPICAL SCH (08:22)
[2021-07-23] MEDS: Fluticasone NASAL SPRAY 50MCG 16 gm SPRAY BTL BOTH NARES SCH (08:22)
[2021-07-23] MEDS: diPHENhydraMINE 25 mg TAB PO PRN (21:03)
[2021-07-23] MEDS: Insulin GLARGINE 100 un/ml 10 ml VIAL SUBCUT SCH (21:53)
[2021-07-24 06:40] LABS: ABS Eosinophils 0.1 10^3/ul (0-0.6); ABS Monocytes 0.6 10^3/ul (0-0.8); ABS Neutrophils 4.4 10^3/ul (1.5-7.7); Eosinophil % 2.3 %; Hematocrit 36 % (35-47); Hemoglobin 11.2 g/dL (12.0-16.0); Lymphocyte % 16.6 %; Mean Corpuscular HGB Conc 31 g/dL (31-36); Mean Corpuscular Hemoglobin 25 pg (27-31); Mean Corpuscular Volume 81 fL (80-97); Mean Platelet Volume 7.6 fL (7.4-10.4); Platelet Count 280 10^3/uL (150-450); Red Blood Count 4.41 10^6 /uL (3.70-4.87); Red Cell Distribution Width 23 % (10-15); White Blood Count 6.2 10^3/uL (3.5-10.8)
[2021-07-24 06:54] LABS: Albumin 3.3 g/dL (3.2-5.2); Albumin/Globulin Ratio 1.3 (1-3); Calcium 9.5 mg/dL (8.6-10.3); Globulin 2.5 g/dL (2-4); Potassium 4.4 mmol/L (3.5-5.0); Total Bilirubin 0.6 mg/dL (0.2-1.0); Total Protein 5.8 g/dL (6.4-8.9); eGFR CKD-EPI 91.1 (>60)
[2021-07-24] MEDS: FLUTICAS/UMECLI/VILANT 200-62.5-25 MDI (NF) INH SCH (07:45)
[2021-07-24] MEDS: Fluticasone NASAL SPRAY 50MCG 16 gm SPRAY BTL BOTH NARES SCH (07:45)
[2021-07-24] MEDS: Bacitracin OINTMENT TUBE TOPICAL SCH (09:41)
[2021-07-24] MEDS: diPHENhydraMINE 25 mg TAB PO PRN ×2 (10:52→21:48)
[2021-07-24] MEDS: Insulin GLARGINE 100 un/ml 10 ml VIAL SUBCUT SCH (21:51)
[2021-07-25 06:14] VITALS: BP 146/56
[2021-07-25] MEDS: FLUTICAS/UMECLI/VILANT 200-62.5-25 MDI (NF) INH SCH (08:03)
[2021-07-25] MEDS: Fluticasone NASAL SPRAY 50MCG 16 gm SPRAY BTL BOTH NARES SCH (09:06)
[2021-07-25] MEDS: Bacitracin OINTMENT TUBE TOPICAL SCH (09:07)
== END 2021-07-25 11:46 | disposition home health service (06) | DRG 860 ==
LOC: PMRU 10:40
PROVIDERS: ADMIT Physical Medicine & Rehabilitation; ATTEND Physical Medicine & Rehabilitation